=== PATIENT | female | born 1990 | race Two or more races ===

== ENCOUNTER 2016-07-15 14:04 | Emergency (ER) | payer MEDICAID ==
[~2016-07-15] VITALS: Ht 170.2 cm; Wt 95.3 kg
[~2016-07-15 14:04] MED LIST: CALC0.25 PO; CALC150C PO; DOCU100T7 PO; FERRTAB PO
[2016-07-15 15:28] VITALS: BP 138/88
== END 2016-07-16 00:04 | disposition left against medical advice (07) ==
LOC: ER 14:04 → EDUNIT# 14:04 → ER 07-16 00:03
DX: R07.89 Other chest pain (principal); Z53.21 Procedure and treatment not carried out due to patient leaving prior to being seen by health care provider
CPT/HCPCS: 93005

== ENCOUNTER 2016-11-17 14:35 | Inpatient (IN) | payer MEDICAID ==
[~2016-11-17] VITALS: Ht 170.2 cm; Wt 113.3 kg
[2016-11-17 16:40] LABS: Albumin 3.7 g/dL (3.4-5.0); Potassium 3.2 mmol/L (3.5-5.1)
[2016-11-17 16:43] LABS: BUN/Creatinine Ratio 11.1; Basophils # (auto) 0 uL; Basophils % (auto) 0.3 % (0.0-2.0); Bilirubin, Total 0.2 mg/dL (0.2-1.0); DEFINITIVE Y; Eosinophils # (auto) 0.1 uL; Eosinophils % (auto) 1.6 % (0.0-7.0); Hematocrit 27.2 % (36.0-46.0); Hemoglobin 8.8 g/dL (12.2-16.2); Lymphocytes # (auto) 1.3 uL; Lymphocytes % (auto) 19.1 % (10.0-50.0); Mean Corpuscular Hemoglobin 23.9 pg (28.0-32.0); Mean Corpuscular Hgb Conc. 32.2 g/dL (32.0-36.0); Mean Corpuscular Volume 74.1 fL (80.0-100.0); Mean Platelet Volume 8.4 fL (7.4-10.4); Monocytes # (auto) 0.4 uL; Monocytes % (auto) 5.6 % (0.0-12.0); Neutrophils # (auto) 4.9 uL; Neutrophils % (auto) 73.4 % (37.0-80.0); Platelet Count (auto) 353 10^3/uL (140-450); Red Cell Distribution Width 18.1 % (11.6-16.0); Total Protein 7.8 g/dL (6.4-8.2); White Blood Cell 6.7 10^3/uL (4.4-10.8)
[2016-11-17 16:56] LABS: Calcium 5.9 mg/dL (8.5-10.1)
[2016-11-17 20:31] LABS: INR 0.98 (0.9-1.15); Partial Thromboplastin Time 28.6 sec (22.64-33.71); Prothrombin Time 10.7 sec (9.37-12.3)
[2016-11-17 20:37] LABS: Urine Bilirubin Negative (Negative); Urine Blood Negative /uL (Negative); Urine Color Yellow (Yellow); Urine Glucose Normal (Normal); Urine Ketone Negative (Negative); Urine Mucus FEW (None Seen); Urine Nitrite Negative (Negative); Urine RBC 2 /hpf (0 - 4); Urine Squamous Epithelial Cell FEW /hpf (<5); Urine Urobilinogen Normal (Negative)
[2016-11-17] MEDS ORDERED: POTASSIUM CHL 20 Meq TABLET PO ONE (21:15)
[2016-11-17] MEDS ORDERED: CALCIUM GLUC 4.65 MEQ/10ML 4.65 MEQ in SODIUM CHL 0.9% 50 ML IV ONE (21:15)
[2016-11-17] MEDS ORDERED: SODIUM CHLORIDE 0.9% 1,000 ML IV ONE (22:15)
[2016-11-17] MEDS ORDERED: ACETAMINOPHEN 325 MG TAB PO PRN (22:30)
[2016-11-17] MEDS: CALCITRIOL 0.25 MCG CAP PO SCH (22:49)
[2016-11-17] MEDS: CIPROFLOXACIN HCL 500 MG TAB PO SCH (22:49)
[2016-11-17] MEDS: LEVETIRACETAM 500 MG TAB PO SCH (22:49)
[2016-11-18] MEDS ORDERED: ONDANSETRON HCL 4 MG/2 ML VIAL ONE (00:11)
[2016-11-18] MEDS ORDERED: ONDANSETRON HCL 4 MG/2 ML VIAL IV PRN (00:15)
[2016-11-18 04:26] LABS: Basophils # (auto) 0 uL; Basophils % (auto) 0.6 % (0.0-2.0); DEFINITIVE Y; Eosinophils # (auto) 0.1 uL; Hematocrit 24.6 % (36.0-46.0); Lymphocytes # (auto) 1.6 uL; Lymphocytes % (auto) 26.7 % (10.0-50.0); Mean Corpuscular Hemoglobin 23.9 pg (28.0-32.0); Mean Corpuscular Hgb Conc. 32.5 g/dL (32.0-36.0); Mean Corpuscular Volume 73.5 fL (80.0-100.0); Monocytes # (auto) 0.4 uL; Monocytes % (auto) 6.7 % (0.0-12.0); Neutrophils # (auto) 3.9 uL; Platelet Count (auto) 310 10^3/uL (140-450); Red Cell Distribution Width 18.1 % (11.6-16.0); White Blood Cell 6.1 10^3/uL (4.4-10.8)
[2016-11-18 04:41] LABS: Albumin 3.2 g/dL (3.4-5.0); BUN/Creatinine Ratio 12.9; Potassium 3.7 mmol/L (3.5-5.1)
[2016-11-18 04:42] LABS: Calcium 5.9 mg/dL (8.5-10.1)
[2016-11-18 04:44] LABS: Bilirubin, Total 0.3 mg/dL (0.2-1.0); Total Protein 6.9 g/dL (6.4-8.2)
[2016-11-18] MEDS ORDERED: LEVOTHYROXINE SODIUM 100 MCG TAB PO SCH (07:00)
[2016-11-18] MEDS: CALCITRIOL 0.25 MCG CAP PO SCH ×3 (07:56→22:02)
[2016-11-18 08:45] VITALS: BP 121/68
[2016-11-18] MEDS: CIPROFLOXACIN HCL 500 MG TAB PO SCH ×2 (09:46→22:02)
[2016-11-18] MEDS: LEVETIRACETAM 500 MG TAB PO SCH ×2 (09:56→22:02)
[2016-11-18] MEDS: CALCIUM CITRATE PO SCH ×2 (10:00→22:00)
[2016-11-18 12:22] VITALS: BP 123/63
[2016-11-18 12:45] VITALS: BP 123/63
[2016-11-18] MEDS ORDERED: LEV100T PO (14:54)
[2016-11-18 16:36] VITALS: BP 103/55
[2016-11-18 20:00] VITALS: BP 104/59
[2016-11-18 22:00] VITALS: BP 106/67
[2016-11-19 02:08] VITALS: BP 103/67
[2016-11-19 05:00] VITALS: BP 92/46
[2016-11-19] MEDS: CALCITRIOL 0.25 MCG CAP PO SCH (05:56)
[2016-11-19 06:53] LABS: Basophils # (auto) 0 uL; Basophils % (auto) 0.4 % (0.0-2.0); CONDITION Y; DEFINITIVE Y; Eosinophils # (auto) 0.1 uL; Eosinophils % (auto) 1.9 % (0.0-7.0); Hemoglobin 8.2 g/dL (12.2-16.2); Lymphocytes # (auto) 1.4 uL; Lymphocytes % (auto) 23.1 % (10.0-50.0); Mean Corpuscular Hemoglobin 23.7 pg (28.0-32.0); Mean Corpuscular Hgb Conc. 31.7 g/dL (32.0-36.0); Mean Corpuscular Volume 74.6 fL (80.0-100.0); Mean Platelet Volume 8.3 fL (7.4-10.4); Monocytes # (auto) 0.4 uL; Monocytes % (auto) 6.6 % (0.0-12.0); Neutrophils # (auto) 4.1 uL; Platelet Count (auto) 315 10^3/uL (140-450); Red Cell Distribution Width 17.6 % (11.6-16.0)
[2016-11-19 07:32] LABS: Albumin 3.2 g/dL (3.4-5.0); Potassium 3.6 mmol/L (3.5-5.1)
[2016-11-19 07:49] LABS: BUN/Creatinine Ratio 14.9; Bilirubin, Total 0.3 mg/dL (0.2-1.0); Total Protein 7.1 g/dL (6.4-8.2)
[2016-11-19 08:16] VITALS: BP 103/57
[2016-11-19] MEDS: LEVETIRACETAM 500 MG TAB PO SCH (09:41)
[2016-11-19] MEDS: CALCIUM CITRATE PO SCH (09:41)
[2016-11-19] MEDS: CIPROFLOXACIN HCL 500 MG TAB PO SCH (09:41)
[2016-11-19 12:30] VITALS: BP 105/60
[2016-11-20] MEDS ORDERED: LEVE500T22 PO (04:03)
== END 2016-11-19 13:19 | disposition home or self-care (01) | DRG 532 ==
LOC: ER 14:35 → TELE 14:37 → TELE-WESTW 11-18 09:09
PROVIDERS: ADMIT Family Medicine; ATTEND Internal Medicine
DX: N92.0 Excessive and frequent menstruation with regular cycle (principal); N39.0 Urinary tract infection, site not specified; R53.1 Weakness; E83.51 Hypocalcemia; E87.6 Hypokalemia; F41.9 Anxiety disorder, unspecified; E89.0 Postprocedural hypothyroidism; D50.9 Iron deficiency anemia, unspecified; D50.0 Iron deficiency anemia secondary to blood loss (chronic); G40.909 Epilepsy, unspecified, not intractable, without status epilepticus; Z79.899 Other long term (current) drug therapy; Z82.49 Family history of ischemic heart disease and other diseases of the circulatory system; Z83.3 Family history of diabetes mellitus; Z85.850 Personal history of malignant neoplasm of thyroid; Z82.3 Family history of stroke; Z88.5 Allergy status to narcotic agent; Z98.51 Tubal ligation status; Z90.89 Acquired absence of other organs; Z80.9 Family history of malignant neoplasm, unspecified; Z71.89 Other specified counseling
CPT/HCPCS: 36415; 71010; 80053; 81001; 81025; 83735; 83970; 84443; 85025; 85610; 85730; 87086; 93005; 94761; 96365; J2405

== ENCOUNTER 2016-11-19 16:05 | Inpatient (IN) | payer MEDICAID ==
[~2016-11-19] VITALS: Ht 170.2 cm; Wt 115.0 kg
[~2016-11-19 16:05] MED LIST changes: +LEV100T PO
[2016-11-19 17:25] LABS: Albumin 3.6 g/dL (3.4-5.0); Alkaline Phosphatase 88 U/L (45-117); Anion Gap 10 (5-15); Aspartate Aminotransferase 17 U/L (15-37); BUN/Creatinine Ratio 12.5; Bilirubin, Total 0.3 mg/dL (0.2-1.0); Blood Urea Nitrogen 11 mg/dL (7-18); Calcium 6.2 mg/dL (8.5-10.1); Carbon Dioxide 27 mmol/L (21-32); Chloride 102 mmol/L (98-107); GFR African American 102 mL/min; GFR Non-African American 85 mL/min; Glucose 98 mg/dL (74-106); Potassium 3.4 mmol/L (3.5-5.1); Sodium 139 mmol/L (136-145); Total Protein 7.7 g/dL (6.4-8.2)
[2016-11-19 17:28] LABS: Basophils # (auto) 0 uL; Basophils % (auto) 0.2 % (0.0-2.0); CONDITION AutoValidated; DEFINITIVE SEE PRINTOUT; Eosinophils # (auto) 0.1 uL; Eosinophils % (auto) 1.7 % (0.0-7.0); Hematocrit 27.9 % (36.0-46.0); Hemoglobin 9.1 g/dL (12.2-16.2); Lymphocytes # (auto) 1.5 uL; Lymphocytes % (auto) 20.6 % (10.0-50.0); Mean Corpuscular Hemoglobin 24.2 pg (28.0-32.0); Mean Corpuscular Hgb Conc. 32.8 g/dL (32.0-36.0); Mean Corpuscular Volume 73.8 fL (80.0-100.0); Mean Platelet Volume 8.4 fL (7.4-10.4); Monocytes # (auto) 0.4 uL; Monocytes % (auto) 5.7 % (0.0-12.0); Neutrophils # (auto) 5.3 uL; Neutrophils % (auto) 71.8 % (37.0-80.0); Platelet Count (auto) 334 10^3/uL (140-450); Red Cell Distribution Width 18.1 % (11.6-16.0); White Blood Cell 7.3 10^3/uL (4.4-10.8)
[2016-11-19 17:48] LABS: Platelet Estimate Adequate
[2016-11-19 17:49] LABS: Hypochromia Slight
[2016-11-19] MEDS ORDERED: SODIUM CHLORIDE 0.9% 1,000 ML IV ONE (18:47)
[2016-11-19] MEDS ORDERED: ONDANSETRON HCL 4 MG/2 ML VIAL IV ONE (19:00)
[2016-11-19] MEDS ORDERED: TEMAZEPAM 15 MG CAP PO PRN (21:45)
[2016-11-19] MEDS ORDERED: POTASSIUM CHL 20 Meq TABLET PO ONE (21:45)
[2016-11-19] MEDS ORDERED: CALCIUM GLUC 4.65 MEQ/10ML 4.65 MEQ in SODIUM CHL 0.9% 50 ML IV ONE ×2 (21:45→22:30)
[2016-11-19] MEDS ORDERED: HYDROcodone-ACET 5/325MG TAB PO PRN (21:45)
[2016-11-19] MEDS: CALCIUM CITRATE PO SCH (22:00)
[2016-11-19] MEDS: LEVETIRACETAM 500 MG TAB PO SCH (22:46)
[2016-11-19] MEDS: FAMOTIDINE 20 MG TAB PO SCH (22:47)
[2016-11-19] MEDS: SODIUM CHLORIDE 0.9% 1,000 ML IV SCH (23:38)
[2016-11-20] VITALS (9 sets, daily range): BP systolic 102–123; BP diastolic 61–77
[2016-11-20 00:37] LABS: Urine Bilirubin Negative (Negative); Urine Blood Negative /uL (Negative); Urine Color Yellow (Yellow); Urine Glucose Normal (Normal); Urine Ketone Negative (Negative); Urine Mucus FEW (None Seen); Urine Nitrite Negative (Negative); Urine RBC 3 /hpf (0 - 4); Urine Squamous Epithelial Cell FEW /hpf (<5); Urine Urobilinogen Normal (Negative)
[2016-11-20] MEDS ORDERED: CALCITRIOL 0.25 MCG CAP ONE (01:23)
[2016-11-20] MEDS ORDERED: ACETAMINOPHEN 325 MG TAB PO ONE (01:24)
[2016-11-20] MEDS: CALCITRIOL 0.25 MCG CAP PO SCH ×3 (01:33→21:38)
[2016-11-20] MEDS: ACETAMINOPHEN 325 MG TAB PO PRN ×2 (01:33→23:55)
[2016-11-20] MEDS ORDERED: LEVE500T22 PO (04:03)
[2016-11-20] MEDS ORDERED: LEVOTHYROXINE SODIUM 100 MCG TAB ONE (04:51)
[2016-11-20] MEDS: LEVOTHYROXINE SODIUM 100 MCG TAB PO SCH (06:39)
[2016-11-20] MEDS: CALCIUM CITRATE PO SCH ×2 (10:55→21:38)
[2016-11-20] MEDS: FAMOTIDINE 20 MG TAB PO SCH ×2 (10:55→21:35)
[2016-11-20] MEDS: LEVETIRACETAM 500 MG TAB PO SCH ×2 (10:55→21:34)
[2016-11-20] MEDS: ONDANSETRON HCL 4 MG/2 ML VIAL IV PRN (11:02)
[2016-11-20] MEDS ORDERED: LORazepam 2MG/ML-1ML VIAL IV PRN (14:00)
[2016-11-20] MEDS ORDERED: LORazepam 2MG/ML-1ML VIAL ONE (14:03)
[2016-11-20] MEDS: SODIUM CHLORIDE 0.9% 1,000 ML IV SCH (14:25)
[2016-11-20] MEDS: PROMETHAZINE HCL 25 MG/ML 1ML IV PRN ×3 (14:47→23:16)
[2016-11-20] MEDS ORDERED: ERGOCALCIFEROL 50,000 UNIT(1.25MG) CAP PO SCH (15:00)
[2016-11-20] MEDS ORDERED: PHENYTOIN IV DILANTIN 1,000 MG in SODIUM CHL 0.9% 250 ML IV ONE (15:00)
[2016-11-20] MEDS ORDERED: CALCIUM CARB 500 MG CHEW TAB PO ONE (15:15)
[2016-11-20] MEDS ORDERED: FAMOTIDINE 20 MG TAB PO ONE (15:15)
[2016-11-20 16:35] LABS: BUN/Creatinine Ratio 15.7; Calcium 6.5 mg/dL (8.5-10.1); Potassium 3.6 mmol/L (3.5-5.1)
[2016-11-20] MEDS: PHENYTOIN SODIUM 100 MG CAP PO SCH (21:32)
[2016-11-20] MEDS: CALCIUM CARB 500 MG CHEW TAB PO SCH (21:32)
[2016-11-21] VITALS (7 sets, daily range): BP systolic 104–116; BP diastolic 57–66
[2016-11-21] MEDS ORDERED: diphenhdrAMINE HCL 50 MG/1 ML VL IM ONE (01:00)
[2016-11-21] MEDS ORDERED: methylPREDNISolone SOD SUCC 125 MG/2 ML VL IM ONE (01:00)
[2016-11-21] MEDS: ONDANSETRON HCL 4 MG/2 ML VIAL IV PRN (01:25)
[2016-11-21] MEDS: SODIUM CHLORIDE 0.9% 1,000 ML IV SCH ×2 (07:05→21:33)
[2016-11-21] MEDS: LEVOTHYROXINE SODIUM 100 MCG TAB PO SCH (07:05)
[2016-11-21] MEDS: PROMETHAZINE HCL 25 MG/ML 1ML IV PRN ×3 (08:57→21:31)
[2016-11-21] MEDS: HYDROmorphone HCL 2 MG/ML VL IV PRN ×3 (08:57→22:07)
[2016-11-21] MEDS: CALCIUM CITRATE PO SCH (10:00)
[2016-11-21] MEDS: LEVETIRACETAM 500 MG TAB PO SCH ×2 (10:06→21:37)
[2016-11-21] MEDS: FAMOTIDINE 20 MG TAB PO SCH ×2 (10:07→21:37)
[2016-11-21] MEDS: CALCITRIOL 0.25 MCG CAP PO SCH ×2 (10:07→21:36)
[2016-11-21] MEDS: CALCIUM CARB 500 MG CHEW TAB PO SCH ×2 (10:07→21:36)
[2016-11-21] MEDS: CIPROFLOXACIN HCL 500 MG TAB PO SCH ×2 (12:16→21:36)
[2016-11-21] MEDS: PHENYTOIN SODIUM 100 MG CAP PO SCH (21:39)
[2016-11-22 06:00] VITALS: BP 109/71
[2016-11-22 06:04] LABS: Basophils # (auto) 0 uL; Basophils % (auto) 0.3 % (0.0-2.0); CONDITION AutoValidated; DEFINITIVE SEE PRINTOUT; Eosinophils # (auto) 0 uL; Eosinophils % (auto) 0.4 % (0.0-7.0); Hematocrit 26.2 % (36.0-46.0); Hemoglobin 8.5 g/dL (12.2-16.2); Lymphocytes # (auto) 1.5 uL; Lymphocytes % (auto) 16.4 % (10.0-50.0); Mean Corpuscular Hemoglobin 24.1 pg (28.0-32.0); Mean Corpuscular Hgb Conc. 32.3 g/dL (32.0-36.0); Mean Corpuscular Volume 74.5 fL (80.0-100.0); Mean Platelet Volume 8.1 fL (7.4-10.4); Monocytes # (auto) 0.6 uL; Monocytes % (auto) 6.1 % (0.0-12.0); Neutrophils # (auto) 7.2 uL; Neutrophils % (auto) 76.8 % (37.0-80.0); Platelet Count (auto) 328 10^3/uL (140-450); Red Cell Distribution Width 18.1 % (11.6-16.0); White Blood Cell 9.4 10^3/uL (4.4-10.8)
[2016-11-22 06:24] LABS: Albumin 3.1 g/dL (3.4-5.0); BUN/Creatinine Ratio 12.5; Calcium 6.7 mg/dL (8.5-10.1); Potassium 3.3 mmol/L (3.5-5.1)
[2016-11-22] MEDS: LEVOTHYROXINE SODIUM 100 MCG TAB PO SCH (06:37)
[2016-11-22 06:47] LABS: Bilirubin, Total 0.2 mg/dL (0.2-1.0)
[2016-11-22 09:00] VITALS: BP 95/53
[2016-11-22] MEDS ORDERED: POTASSIUM CHLORIDE 20 MEQ, LIDOCAINE 1% (LOCAL ANESTH.) 2 ML in SODIUM CHL 0.9% 100 ML IV ONE (10:00)
[2016-11-22] MEDS ORDERED: PANTOPRAZOLE 40 MG TAB PO ONE (10:30)
[2016-11-22] MEDS: DOCUSATE SOD 100 MG CAP PO PRN ×2 (10:46→21:30)
[2016-11-22] MEDS: CIPROFLOXACIN HCL 500 MG TAB PO SCH ×2 (10:46→21:29)
[2016-11-22] MEDS: LEVETIRACETAM 500 MG TAB PO SCH ×2 (10:46→21:30)
[2016-11-22] MEDS: CALCIUM CARB 500 MG CHEW TAB PO SCH ×2 (10:46→21:30)
[2016-11-22] MEDS: CALCITRIOL 0.25 MCG CAP PO SCH ×2 (10:46→21:30)
[2016-11-22 13:00] VITALS: BP 118/70
[2016-11-22] MEDS: HYDROmorphone HCL 2 MG/ML VL IV PRN ×2 (14:32→21:32)
[2016-11-22 17:00] VITALS: BP 124/76
[2016-11-22] MEDS: SODIUM CHLORIDE 0.9% 1,000 ML IV SCH (17:01)
[2016-11-22 20:00] VITALS: BP 116/71
[2016-11-22] MEDS: PHENYTOIN SODIUM 100 MG CAP PO SCH (21:29)
[2016-11-22] MEDS: ONDANSETRON HCL 4 MG/2 ML VIAL IV PRN (21:31)
[2016-11-22 22:00] VITALS: BP 116/71
[2016-11-23] VITALS (7 sets, daily range): BP systolic 91–117; BP diastolic 51–73
[2016-11-23] MEDS: LEVOTHYROXINE SODIUM 100 MCG TAB PO SCH (06:40)
[2016-11-23] MEDS: ONDANSETRON HCL 4 MG/2 ML VIAL IV PRN ×3 (06:46→20:18)
[2016-11-23] MEDS: HYDROmorphone HCL 2 MG/ML VL IV PRN ×3 (06:46→20:19)
[2016-11-23 07:01] LABS: BUN/Creatinine Ratio 14.3; Calcium 6.2 mg/dL (8.5-10.1); Potassium 3.7 mmol/L (3.5-5.1)
[2016-11-23 07:29] LABS: Basophils # (auto) 0 uL; Basophils % (auto) 0.2 % (0.0-2.0); DEFINITIVE SEE PRINTOUT; Eosinophils # (auto) 0.1 uL; Eosinophils % (auto) 1.5 % (0.0-7.0); Hematocrit 26.8 % (36.0-46.0); Hemoglobin 8.6 g/dL (12.2-16.2); Lymphocytes % (auto) 27.2 % (10.0-50.0); Mean Corpuscular Hemoglobin 23.6 pg (28.0-32.0); Mean Corpuscular Hgb Conc. 32.1 g/dL (32.0-36.0); Mean Corpuscular Volume 73.5 fL (80.0-100.0); Mean Platelet Volume 7.7 fL (7.4-10.4); Monocytes # (auto) 0.4 uL; Monocytes % (auto) 5.8 % (0.0-12.0); Neutrophils # (auto) 4.8 uL; Neutrophils % (auto) 65.3 % (37.0-80.0); Platelet Count (auto) 318 10^3/uL (140-450); Red Cell Distribution Width 17.9 % (11.6-16.0); White Blood Cell 7.4 10^3/uL (4.4-10.8)
[2016-11-23] MEDS: SODIUM CHLORIDE 0.9% 1,000 ML IV SCH (09:05)
[2016-11-23] MEDS: PANTOPRAZOLE 40 MG TAB PO SCH (10:00)
[2016-11-23] MEDS: CIPROFLOXACIN HCL 500 MG TAB PO SCH ×2 (10:00→22:41)
[2016-11-23] MEDS: LEVETIRACETAM 500 MG TAB PO SCH ×2 (10:00→22:41)
[2016-11-23] MEDS: CALCITRIOL 0.25 MCG CAP PO SCH ×2 (10:00→22:41)
[2016-11-23] MEDS: CALCIUM CARB 500 MG CHEW TAB PO SCH ×2 (10:00→22:41)
[2016-11-23] MEDS: PHENYTOIN SODIUM 100 MG CAP PO SCH (22:41)
[2016-11-23] MEDS: DOCUSATE SOD 100 MG CAP PO PRN (22:41)
[2016-11-24] MEDS: SODIUM CHLORIDE 0.9% 1,000 ML IV SCH (01:40)
[2016-11-24 05:21] VITALS: BP 107/69
[2016-11-24] MEDS: ONDANSETRON HCL 4 MG/2 ML VIAL IV PRN ×2 (05:36→06:51)
[2016-11-24] MEDS: HYDROmorphone HCL 2 MG/ML VL IV PRN (05:37)
[2016-11-24] MEDS: LEVOTHYROXINE SODIUM 100 MCG TAB PO SCH (06:50)
[2016-11-24 08:27] VITALS: BP 117/77
[2016-11-24] MEDS: CALCIUM CARB 500 MG CHEW TAB PO SCH (10:13)
[2016-11-24] MEDS: LEVETIRACETAM 500 MG TAB PO SCH (10:13)
[2016-11-24] MEDS: CALCITRIOL 0.25 MCG CAP PO SCH (10:13)
[2016-11-24] MEDS: CIPROFLOXACIN HCL 500 MG TAB PO SCH (10:13)
[2016-11-24] MEDS: PANTOPRAZOLE 40 MG TAB PO SCH (10:13)
[2016-11-24 12:50] VITALS: BP 122/76
== END 2016-11-24 16:15 | disposition home or self-care (01) | DRG 53 ==
LOC: ER 16:05 → EDBD 16:05 → WEST WING 16:06 → ER 11-20 00:10 → TELE-WESTW 11-20 20:27
PROVIDERS: ADMIT Internal Medicine; ATTEND Internal Medicine
DX: G40.409 Other generalized epilepsy and epileptic syndromes, not intractable, without status epilepticus (principal); E87.8 Other disorders of electrolyte and fluid balance, not elsewhere classified; N39.0 Urinary tract infection, site not specified; E83.51 Hypocalcemia; E03.9 Hypothyroidism, unspecified; D50.0 Iron deficiency anemia secondary to blood loss (chronic); E20.9 Hypoparathyroidism, unspecified; E66.9 Obesity, unspecified; Z68.39 Body mass index [BMI] 39.0-39.9, adult; K59.00 Constipation, unspecified; N92.0 Excessive and frequent menstruation with regular cycle; S16.1XXA Strain of muscle, fascia and tendon at neck level, initial encounter; Z82.3 Family history of stroke; Z82.49 Family history of ischemic heart disease and other diseases of the circulatory system; Z83.3 Family history of diabetes mellitus; F41.9 Anxiety disorder, unspecified; Z98.51 Tubal ligation status; Z90.89 Acquired absence of other organs; Z85.9 Personal history of malignant neoplasm, unspecified; Z71.89 Other specified counseling; Z80.41 Family history of malignant neoplasm of ovary; Z83.6 Family history of other diseases of the respiratory system; Z88.5 Allergy status to narcotic agent
CPT/HCPCS: 36415; 70450; 72125; 80048; 80053; 81001; 82728; 82962; 84484; 85025; 87081; 93005; 94761; 96365; 96366; 96375; J2001; J2405

== ENCOUNTER 2017-01-08 21:02 | Emergency (ER) | payer MEDICAID ==
[~2017-01-08] VITALS: Ht 170.2 cm; Wt 108.9 kg
[~2017-01-08 21:02] MED LIST changes: +LEVE500T22 PO
[2017-01-08 21:32] VITALS: BP 120/77
[2017-01-08] MEDS ORDERED: KETOROLAC TROMETH 60MG/2ML VIAL IM ONE (23:30)
== END 2017-01-09 01:20 | disposition home or self-care (01) ==
LOC: ER 21:16
DX: Z04.1 Encounter for examination and observation following transport accident (principal); M54.9 Dorsalgia, unspecified; V49.50XA Passenger injured in collision with unspecified motor vehicles in traffic accident, initial encounter; Y93.89 Activity, other specified; Y92.488 Other paved roadways as the place of occurrence of the external cause; Y99.8 Other external cause status; E07.9 Disorder of thyroid, unspecified; Z98.51 Tubal ligation status; Z88.6 Allergy status to analgesic agent
CPT/HCPCS: 72125; 72131; 96372; 99284; J1885

== ENCOUNTER 2017-03-21 11:54 | Inpatient (IN) | payer MEDICAID ==
[~2017-03-21] VITALS: Ht 170.2 cm; Wt 123.4 kg
[~2017-03-21 11:54] MED LIST changes: -LEV100T PO; +LEVO200I5 PO
[2017-03-21 12:36] LABS: Basophils # (auto) 0.1 uL; Basophils % (auto) 1.3 % (0.0-2.0); Eosinophils # (auto) 0.2 uL; Eosinophils % (auto) 2.5 % (0.0-7.0); Hematocrit 33.2 % (36.0-46.0); Hemoglobin 10.4 g/dL (12.2-16.2); Lymphocytes # (auto) 1.9 uL; Lymphocytes % (auto) 23.1 % (10.0-50.0); Mean Corpuscular Hemoglobin 24.3 pg (28.0-32.0); Mean Corpuscular Hgb Conc. 31.4 g/dL (32.0-36.0); Mean Corpuscular Volume 77.3 fL (80.0-100.0); Mean Platelet Volume 8.1 fL (6.9-10.8); Monocytes # (auto) 0.4 uL; Monocytes % (auto) 4.7 % (0.0-12.0); Neutrophils # (auto) 5.6 uL; Neutrophils % (auto) 68.4 % (37.0-80.0); Nucleated Red Blood Cells % 0.1 %; Platelet Count (auto) 296 10^3/uL (140-450); White Blood Cell 8.2 10^3/uL (4.4-10.8)
[2017-03-21 12:53] LABS: Anion Gap 11 (5-15); Aspartate Aminotransferase 27 U/L (15-37); BUN/Creatinine Ratio 8.8; Blood Urea Nitrogen 9 mg/dL (7-18); Calcium 7.5 mg/dL (8.5-10.1); Carbon Dioxide 26 mmol/L (21-32); Chloride 102 mmol/L (98-107); GFR African American 86 mL/min; GFR Non-African American 71 mL/min; Glucose 87 mg/dL (74-106); Potassium 3.8 mmol/L (3.5-5.1); Sodium 139 mmol/L (136-145)
[2017-03-21 12:58] LABS: Alkaline Phosphatase 77 U/L (45-117); Bilirubin, Total 0.3 mg/dL (0.2-1.0); Total Protein 8.2 g/dL (6.4-8.2)
[2017-03-21 13:23] LABS: Anisocytosis Slight; Hypochromia Slight; Microcytosis Slight; Platelet Estimate Adequate
[2017-03-21 13:24] LABS: Ovalocytes FEW
[2017-03-21] MEDS ORDERED: SODIUM CHLORIDE 0.9% 1,000 ML IV ONE (14:30)
[2017-03-21] MEDS ORDERED: ASPirin 81 mg TAB PO ONE (14:30)
[2017-03-21] MEDS ORDERED: FERROUS SULFATE 300 MG/5 ML ORAL LIQ GT ONE (14:45)
[2017-03-21 15:34] LABS: Urine RBC None Seen /hpf (0 - 4)
[2017-03-21 16:12] LABS: Urine Bilirubin Negative (Negative); Urine Blood Negative /uL (Negative); Urine Color Yellow (Yellow); Urine Glucose Normal (Normal); Urine Ketone Negative (Negative); Urine Nitrite Negative (Negative); Urine Squamous Epithelial Cell FEW /hpf (<5); Urine Urobilinogen Normal (Negative)
[2017-03-21] MEDS ORDERED: LORazepam 2MG/ML-1ML VIAL ONE (16:12)
[2017-03-21] MEDS ORDERED: LEVETIRACETAM INJ 1,000 MG in SODIUM CHL 0.9% 100 ML IV ONE (16:30)
[2017-03-21] MEDS ORDERED: LORazepam 2MG/ML-1ML VIAL IM ONE (16:30)
[2017-03-21] MEDS ORDERED: LORazepam 2MG/ML-1ML VIAL IV PRN (17:00)
[2017-03-21] MEDS ORDERED: MORPHINE SULF INJ 2 MG/ML SYRINGE 1ML IV PRN ×3 (17:00)
[2017-03-21] MEDS ORDERED: NITROGLYCERIN 0.4 MG SL TAB SL PRN (17:00)
[2017-03-21] MEDS ORDERED: LACTULOSE 20Gm/30ML SOLN PO PRN (17:00)
[2017-03-21] MEDS ORDERED: TEMAZEPAM 15 MG CAP PO PRN (17:00)
[2017-03-21] MEDS: SODIUM CHLORIDE 0.9% 1,000 ML IV SCH (17:36)
[2017-03-21 20:30] VITALS: BP 107/59
[2017-03-21] MEDS: NITROFURANTOIN (MONO) 100 mg CAP PO SCH (21:12)
[2017-03-21] MEDS: CALCITRIOL 0.25 MCG CAP PO SCH (21:13)
[2017-03-21] MEDS: LEVETIRACETAM 500 MG TAB PO SCH (21:13)
[2017-03-21] MEDS: FERROUS SULFATE 325 MG TAB PO SCH (21:13)
[2017-03-21] MEDS ORDERED: FERROUS SULFATE PO SCH (22:00)
[2017-03-21] MEDS ORDERED: CALCIUM CITRATE PO SCH (22:00)
[2017-03-21 22:07] VITALS: BP 107/59
[2017-03-22 05:21] VITALS: BP 122/82
[2017-03-22] MEDS: LEVOTHYROXINE SODIUM 100 MCG TAB PO SCH (06:08)
[2017-03-22] MEDS: CALCITRIOL 0.25 MCG CAP PO SCH ×3 (06:08→21:56)
[2017-03-22] MEDS: SODIUM CHLORIDE 0.9% 1,000 ML IV SCH (06:09)
[2017-03-22 07:00] VITALS: BP 129/67
[2017-03-22 08:00] VITALS: BP 129/67
[2017-03-22 09:23] LABS: Cholesterol 221 mg/dL (< 200); HDL Cholesterol 51 mg/dL (40-59); LDL Cholesterol 96 mg/dL (< 100); Triglycerides 362 mg/dL (< 150)
[2017-03-22] MEDS ORDERED: PATIENTS OWN MEDICATION (Levothyroxine Sodium 300 MCG) PO SCH (10:00)
[2017-03-22] MEDS ORDERED: DOCUSATE SODIUM 100 MG PO SCH (10:00)
[2017-03-22] MEDS: ENOXAPARIN SOD 40 MG/0.4 ML SYRINGE SC SCH (10:43)
[2017-03-22] MEDS: NITROFURANTOIN (MONO) 100 mg CAP PO SCH ×2 (10:44→21:56)
[2017-03-22] MEDS: FERROUS SULFATE 325 MG TAB PO SCH ×2 (10:44→21:56)
[2017-03-22] MEDS: PANTOPRAZOLE 40 MG TAB PO SCH (10:44)
[2017-03-22] MEDS: LEVETIRACETAM 500 MG TAB PO SCH ×2 (10:44→21:56)
[2017-03-22] MEDS: DOCUSATE SOD 100 MG CAP PO SCH (10:44)
[2017-03-22] MEDS: LORazepam 0.5 MG TAB PO PRN (10:47)
[2017-03-22 13:00] VITALS: BP 112/74
[2017-03-22] MEDS: ACETAMINOPHEN 500 MG TAB PO PRN (13:55)
[2017-03-22] MEDS: CIPROFLOXACIN HCL 500 MG TAB PO SCH ×2 (15:44→21:56)
[2017-03-22 17:44] VITALS: BP 113/65
[2017-03-22 22:55] VITALS: BP 123/83
[2017-03-23] MEDS: ACETAMINOPHEN 500 MG TAB PO PRN (04:24)
[2017-03-23 05:25] VITALS: BP 129/78
[2017-03-23 05:45] LABS: Basophils # (auto) 0 uL; Eosinophils # (auto) 0.2 uL; Monocytes # (auto) 0.3 uL; White Blood Cell 5.7 10^3/uL (4.4-10.8)
[2017-03-23 05:49] LABS: Basophils % (auto) 0.7 % (0.0-2.0); Eosinophils % (auto) 3.3 % (0.0-7.0); Hematocrit 27.9 % (36.0-46.0); Lymphocytes # (auto) 1.5 uL; Lymphocytes % (auto) 25.5 % (10.0-50.0); Mean Corpuscular Hemoglobin 24.9 pg (28.0-32.0); Mean Corpuscular Hgb Conc. 32.2 g/dL (32.0-36.0); Mean Corpuscular Volume 77.1 fL (80.0-100.0); Mean Platelet Volume 8.1 fL (6.9-10.8); Monocytes % (auto) 5.4 % (0.0-12.0); Neutrophils # (auto) 3.7 uL; Neutrophils % (auto) 65.1 % (37.0-80.0); Platelet Count (auto) 250 10^3/uL (140-450)
[2017-03-23] MEDS: LEVOTHYROXINE SODIUM 100 MCG TAB PO SCH (05:58)
[2017-03-23] MEDS: CALCITRIOL 0.25 MCG CAP PO SCH ×3 (05:58→23:32)
[2017-03-23 06:25] LABS: Albumin 3.5 g/dL (3.4-5.0); BUN/Creatinine Ratio 8.3; Bilirubin, Total 0.3 mg/dL (0.2-1.0); Potassium 3.4 mmol/L (3.5-5.1); Total Protein 7.3 g/dL (6.4-8.2)
[2017-03-23 06:40] LABS: Anisocytosis Slight; Hypochromia Slight; Microcytosis Slight; Platelet Estimate Adequate
[2017-03-23 08:00] VITALS: BP 102/64
[2017-03-23] MEDS: PROMETHAZINE HCL 25 MG/ML 1ML IV PRN ×2 (08:44→16:30)
[2017-03-23 09:00] VITALS: BP 102/64
[2017-03-23 13:00] VITALS: BP 106/67
[2017-03-23] MEDS ORDERED: POTASSIUM CHLORIDE 40 MEQ, LIDOCAINE 1% (LOCAL ANESTH.) 4 ML in SODIUM CHL 0.9% 250 ML IV ONE (13:15)
[2017-03-23] MEDS ORDERED: PANTOPRAZOLE 40 MG TAB PO ONE (13:15)
[2017-03-23] MEDS: FERROUS SULFATE 325 MG TAB PO SCH ×2 (14:21→23:32)
[2017-03-23] MEDS: PANTOPRAZOLE 40 MG TAB PO SCH (14:21)
[2017-03-23] MEDS: LEVETIRACETAM 500 MG TAB PO SCH ×2 (14:21→23:32)
[2017-03-23] MEDS: DOCUSATE SOD 100 MG CAP PO SCH (14:22)
[2017-03-23] MEDS: NITROFURANTOIN (MONO) 100 mg CAP PO SCH ×2 (14:22→23:32)
[2017-03-23] MEDS: ENOXAPARIN SOD 40 MG/0.4 ML SYRINGE SC SCH (14:22)
[2017-03-23] MEDS: CIPROFLOXACIN HCL 500 MG TAB PO SCH ×2 (14:23→23:32)
[2017-03-23 17:00] VITALS: BP 122/67
[2017-03-23 22:00] VITALS: BP 100/61
[2017-03-23] MEDS: LORazepam 0.5 MG TAB PO PRN (23:32)
[2017-03-24 05:00] VITALS: BP 81/45
[2017-03-24] MEDS: LEVOTHYROXINE SODIUM 100 MCG TAB PO SCH (05:48)
[2017-03-24] MEDS: CALCITRIOL 0.25 MCG CAP PO SCH ×2 (05:50→14:00)
[2017-03-24 06:05] LABS: Basophils # (auto) 0 uL; Eosinophils # (auto) 0.2 uL; Lymphocytes # (auto) 1.6 uL; Mean Platelet Volume 7.9 fL (6.9-10.8); Monocytes # (auto) 0.3 uL; Neutrophils % (auto) 63.3 % (37.0-80.0)
[2017-03-24 06:08] LABS: Basophils % (auto) 0.6 % (0.0-2.0); Eosinophils % (auto) 3.4 % (0.0-7.0); Hematocrit 28.1 % (36.0-46.0); Hemoglobin 8.9 g/dL (12.2-16.2); Mean Corpuscular Hemoglobin 24.5 pg (28.0-32.0); Mean Corpuscular Hgb Conc. 31.8 g/dL (32.0-36.0); Mean Corpuscular Volume 77.1 fL (80.0-100.0); Monocytes % (auto) 4.7 % (0.0-12.0); Neutrophils # (auto) 3.6 uL; Nucleated Red Blood Cells % 0.2 %; Platelet Count (auto) 241 10^3/uL (140-450); White Blood Cell 5.7 10^3/uL (4.4-10.8)
[2017-03-24 06:23] LABS: Albumin 3.4 g/dL (3.4-5.0); BUN/Creatinine Ratio 8.3; Bilirubin, Total 0.2 mg/dL (0.2-1.0); Calcium 6.7 mg/dL (8.5-10.1); Potassium 3.5 mmol/L (3.5-5.1); Total Protein 7.3 g/dL (6.4-8.2)
[2017-03-24 09:00] VITALS: BP 116/68
[2017-03-24] MEDS ORDERED: PANTOPRAZOLE 40 MG TAB PO SCH (10:00)
[2017-03-24] MEDS: FERROUS SULFATE 325 MG TAB PO SCH (10:24)
[2017-03-24] MEDS: PANTOPRAZOLE 40 MG TAB PO SCH (10:25)
[2017-03-24] MEDS: NITROFURANTOIN (MONO) 100 mg CAP PO SCH (10:25)
[2017-03-24] MEDS: LEVETIRACETAM 500 MG TAB PO SCH (10:25)
[2017-03-24] MEDS: CIPROFLOXACIN HCL 500 MG TAB PO SCH (10:25)
[2017-03-24] MEDS: ENOXAPARIN SOD 40 MG/0.4 ML SYRINGE SC SCH (10:25)
[2017-03-24] MEDS: DOCUSATE SOD 100 MG CAP PO SCH (10:25)
[2017-03-24 13:00] VITALS: BP 117/62
[2017-03-24 15:12] LABS: Platelet Estimate Adequate
[2017-03-24 15:14] LABS: Anisocytosis Slight; Hypochromia Slight; Microcytosis Slight; Ovalocytes FEW; Stomatocytes Few
[2017-03-24 16:06] VITALS: BP 116/68
== END 2017-03-24 17:30 | disposition home or self-care (01) | DRG 53 ==
LOC: ER 11:54 → TELE 11:55 → ER 16:13 → TELE 19:30 → TELE-WESTW 19:34
PROVIDERS: ADMIT Internal Medicine; ATTEND Internal Medicine
DX: G40.209 Localization-related (focal) (partial) symptomatic epilepsy and epileptic syndromes with complex partial seizures, not intractable, without status epilepticus (principal); Z68.41 Body mass index [BMI] 40.0-44.9, adult; N39.0 Urinary tract infection, site not specified; E83.52 Hypercalcemia; E89.0 Postprocedural hypothyroidism; F41.9 Anxiety disorder, unspecified; E66.9 Obesity, unspecified; D64.9 Anemia, unspecified; K29.70 Gastritis, unspecified, without bleeding; Z98.51 Tubal ligation status; Z88.5 Allergy status to narcotic agent; Z79.899 Other long term (current) drug therapy; Z85.850 Personal history of malignant neoplasm of thyroid; Z87.730 Personal history of (corrected) cleft lip and palate; Z80.41 Family history of malignant neoplasm of ovary; Z82.3 Family history of stroke; Z82.49 Family history of ischemic heart disease and other diseases of the circulatory system; Z83.3 Family history of diabetes mellitus
CPT/HCPCS: 36415; 70450; 71010; 80053; 80061; 80307; 81001; 82962; 84484; 85025; 85652; 87081; 87086; 93005; 96361; 96365; 96372; J2001

== ENCOUNTER 2017-09-20 12:17 | Emergency (ER) | payer MEDICAID ==
[~2017-09-20] VITALS: Ht 172.7 cm; Wt 117.9 kg
[2017-09-20 13:15] LABS: Urine Bacteria FEW /hpf (None Seen); Urine Blood Negative /uL (Negative); Urine Mucus FEW (None Seen); Urine Specific Gravity 1.025 (1.001-1.035); Urine WBC 21 /hpf (0 - 5)
[2017-09-20 13:48] LABS: Basophils # (auto) 0 uL; Eosinophils # (auto) 0.1 uL; Hemoglobin 10.1 g/dL (12.2-16.2); Red Cell Distribution Width 16.7 % (11.8-14.3)
[2017-09-20 13:51] LABS: Basophils % (auto) 0.3 % (0.0-2.0); Eosinophils % (auto) 1.6 % (0.0-7.0); Hematocrit 31.2 % (36.0-46.0); Lymphocytes # (auto) 1.4 uL; Mean Corpuscular Hemoglobin 24.5 pg (28.0-32.0); Mean Corpuscular Hgb Conc. 32.4 g/dL (32.0-36.0); Mean Corpuscular Volume 75.5 fL (80.0-100.0); Monocytes # (auto) 0.5 uL; Monocytes % (auto) 6.5 % (0.0-12.0); Neutrophils # (auto) 5.2 uL; Neutrophils % (auto) 72.6 % (37.0-80.0); Nucleated Red Blood Cells % 0.2 %; Platelet Count (auto) 321 10^3/uL (140-450); Red Blood Cells 4.14 10^6/uL (4.0-5.20); White Blood Cell 7.2 10^3/uL (4.4-10.8)
[2017-09-20 14:17] LABS: Albumin 3.5 g/dL (3.4-5.0); Bilirubin, Total 0.2 mg/dL (0.2-1.0); Calcium 6.6 mg/dL (8.5-10.1); Potassium 3.6 mmol/L (3.5-5.1); Total Protein 7.9 g/dL (6.4-8.2)
[2017-09-20] MEDS ORDERED: CALCIUM GLUC 4.65meq/50ml D5AE 50 ML IV ONE (14:30)
[2017-09-20 16:30] VITALS: BP 111/64
[2017-09-20] MEDS ORDERED: NITROFURANTOIN (MONO) 100 mg CAP PO ONE (16:45)
== END 2017-09-20 17:31 | disposition home or self-care (01) ==
LOC: ER 12:17
DX: E83.51 Hypocalcemia (principal); N39.0 Urinary tract infection, site not specified; E07.89 Other specified disorders of thyroid; Z90.89 Acquired absence of other organs; Z98.51 Tubal ligation status; Z88.6 Allergy status to analgesic agent; Z79.899 Other long term (current) drug therapy
CPT/HCPCS: 36415; 80053; 81001; 81025; 84443; 85025; 96365; 99284; J0610

== ENCOUNTER 2017-09-29 13:10 | Inpatient (IN) | payer MEDICAID, OTHER ==
[~2017-09-29] VITALS: Ht 172.7 cm; Wt 115.5 kg
[2017-09-29 15:29] LABS: Basophils # (auto) 0 uL; Basophils % (auto) 0.2 % (0.0-2.0); Eosinophils # (auto) 0.1 uL; Hemoglobin 10.7 g/dL (12.2-16.2); Lymphocytes # (auto) 1.1 uL; Lymphocytes % (auto) 9.8 % (10.0-50.0); Mean Corpuscular Hgb Conc. 31.8 g/dL (32.0-36.0)
[2017-09-29 15:33] LABS: Eosinophils % (auto) 0.8 % (0.0-7.0); Hematocrit 33.6 % (36.0-46.0); Mean Corpuscular Hemoglobin 24.1 pg (28.0-32.0); Mean Corpuscular Volume 75.7 fL (80.0-100.0); Monocytes # (auto) 0.5 uL; Monocytes % (auto) 4.6 % (0.0-12.0); Neutrophils # (auto) 9.1 uL; Neutrophils % (auto) 84.6 % (37.0-80.0); Nucleated Red Blood Cells % 0.1 %; Platelet Count (auto) 375 10^3/uL (140-450); Red Blood Cells 4.44 10^6/uL (4.0-5.20); Red Cell Distribution Width 16.8 % (11.8-14.3); White Blood Cell 10.8 10^3/uL (4.4-10.8)
[2017-09-29 15:37] LABS: Potassium 3.9 mmol/L (3.5-5.1)
[2017-09-29 15:41] LABS: Albumin 3.7 g/dL (3.4-5.0); BUN/Creatinine Ratio 12.8; Calcium 7.8 mg/dL (8.5-10.1)
[2017-09-29 15:43] LABS: Bilirubin, Total 0.3 mg/dL (0.2-1.0); Total Protein 7.9 g/dL (6.4-8.2)
[2017-09-29 16:36] LABS: Urine Bacteria FEW /hpf (None Seen); Urine Blood Negative /uL (Negative); Urine Mucus FEW (None Seen); Urine Specific Gravity 1.023 (1.001-1.035); Urine WBC 2 /hpf (0 - 5)
[2017-09-29 17:45] LABS: Alcohol, Urine < 3.0 mg/dL (0-5); Amphetamine Screen, Urine NEGATIVE (NEGATIVE); Barbiturate Scree,Urine NEGATIVE (NEGATIVE); Benzodiazephine Screen, Urine NEGATIVE (NEGATIVE); Cannabinoid Screen, Urine NEGATIVE (NEGATIVE); Cocaine Screen, Urine NEGATIVE (NEGATIVE); Opiate Scree,Urine NEGATIVE (NEGATIVE); Phencyclidine Screen, Urine NEGATIVE (NEGATIVE)
[2017-09-29] MEDS ORDERED: ONDANSETRON HCL 4 MG/2 ML VIAL ONE (18:12)
[2017-09-29] MEDS ORDERED: ONDANSETRON HCL 4 MG/2 ML VIAL IV ONE (18:15)
[2017-09-29] MEDS ORDERED: ACETAMINOPHEN 325 MG TAB PO ONE (20:00)
[2017-09-29] MEDS ORDERED: traMADol HCL 50 MG TAB PO PRN (22:30)
[2017-09-29] MEDS ORDERED: MORPHINE SULFATE 8mg/ml INJ SDV IV PRN (22:30)
[2017-09-29] MEDS ORDERED: LORazepam 2MG/ML-1ML VIAL IV PRN (22:30)
[2017-09-29] MEDS ORDERED: ONDANSETRON HCL 4 MG/2 ML VIAL IV PRN (22:30)
[2017-09-30] MEDS ORDERED: LEVETIRACETAM 500 MG TAB PO ONE
[2017-09-30 00:46] VITALS: BP 114/61
[2017-09-30] MEDS: ACETAMINOPHEN 500 MG TAB PO PRN (04:21)
[2017-09-30 05:00] VITALS: BP 102/64
[2017-09-30] MEDS: LEVOTHYROXINE SODIUM 100 MCG TAB PO SCH (06:26)
[2017-09-30 07:01] LABS: BUN/Creatinine Ratio 14.3; Basophils # (auto) 0 uL; Calcium 8.2 mg/dL (8.5-10.1); Lymphocytes # (auto) 1.4 uL; Monocytes # (auto) 0.5 uL; Neutrophils # (auto) 4.6 uL; Nucleated Red Blood Cells % 0.1 %; Potassium 3.7 mmol/L (3.5-5.1); White Blood Cell 6.6 10^3/uL (4.4-10.8)
[2017-09-30 07:08] LABS: Basophils % (auto) 0.3 % (0.0-2.0); Eosinophils # (auto) 0.2 uL; Eosinophils % (auto) 2.5 % (0.0-7.0); Hemoglobin 9.9 g/dL (12.2-16.2); Lymphocytes % (auto) 20.6 % (10.0-50.0); Mean Corpuscular Hemoglobin 24.2 pg (28.0-32.0); Mean Corpuscular Hgb Conc. 31.8 g/dL (32.0-36.0); Mean Corpuscular Volume 75.9 fL (80.0-100.0); Neutrophils % (auto) 69.6 % (37.0-80.0); Platelet Count (auto) 319 10^3/uL (140-450); Red Blood Cells 4.08 10^6/uL (4.0-5.20); Red Cell Distribution Width 16.9 % (11.8-14.3)
[2017-09-30] MEDS ORDERED: HYDROcodone-ACET 5/325MG TAB PO PRN (08:15)
[2017-09-30 09:00] VITALS: BP 98/40
[2017-09-30] MEDS ORDERED: LEVETIRACETAM 500 MG TAB PO SCH (10:00)
[2017-09-30] MEDS: LEVETIRACETAM 500 MG TAB PO SCH ×2 (10:22→22:26)
[2017-09-30] MEDS: SERTRALINE HCL 50 MG TAB PO SCH (10:23)
[2017-09-30 13:00] VITALS: BP 100/72
[2017-09-30 17:00] VITALS: BP 173/65
[2017-09-30 22:00] VITALS: BP 111/69
[2017-10-01 05:00] VITALS: BP 117/66
[2017-10-01 06:31] LABS: Basophils # (auto) 0 uL; Basophils % (auto) 0.4 % (0.0-2.0); Lymphocytes # (auto) 1.5 uL; Monocytes # (auto) 0.5 uL; Nucleated Red Blood Cells % 0.1 %; White Blood Cell 7.2 10^3/uL (4.4-10.8)
[2017-10-01 06:34] LABS: Eosinophils # (auto) 0.2 uL; Eosinophils % (auto) 2.5 % (0.0-7.0); Hemoglobin 9.9 g/dL (12.2-16.2); Lymphocytes % (auto) 21.3 % (10.0-50.0); Mean Corpuscular Hemoglobin 24.1 pg (28.0-32.0); Mean Corpuscular Volume 75.4 fL (80.0-100.0); Monocytes % (auto) 6.4 % (0.0-12.0); Neutrophils % (auto) 69.4 % (37.0-80.0); Platelet Count (auto) 312 10^3/uL (140-450); Red Blood Cells 4.11 10^6/uL (4.0-5.20); Red Cell Distribution Width 16.7 % (11.8-14.3)
[2017-10-01] MEDS: LEVOTHYROXINE SODIUM 100 MCG TAB PO SCH (06:42)
[2017-10-01 06:55] LABS: Albumin 3.2 g/dL (3.4-5.0); BUN/Creatinine Ratio 12.2; Calcium 7.8 mg/dL (8.5-10.1); Potassium 3.9 mmol/L (3.5-5.1)
[2017-10-01 06:58] LABS: Bilirubin, Total 0.3 mg/dL (0.2-1.0)
[2017-10-01] MEDS: ACETAMINOPHEN 500 MG TAB PO PRN (08:15)
[2017-10-01 09:00] VITALS: BP 104/53
[2017-10-01] MEDS: SERTRALINE HCL 50 MG TAB PO SCH (10:00)
[2017-10-01] MEDS: LEVETIRACETAM 500 MG TAB PO SCH (10:00)
== END 2017-10-01 13:30 | disposition home or self-care (01) | DRG 53 ==
LOC: ER 13:10 → EDUNIT# 13:10 → EDBD 13:10 → OVERFLOW 13:11 → EAST 22:45
PROVIDERS: ADMIT Nurse Practitioner Family; ATTEND Internal Medicine
DX: G40.909 Epilepsy, unspecified, not intractable, without status epilepticus (principal); E44.1 Mild protein-calorie malnutrition; E88.09 Other disorders of plasma-protein metabolism, not elsewhere classified; S13.4XXA Sprain of ligaments of cervical spine, initial encounter; D64.9 Anemia, unspecified; E03.9 Hypothyroidism, unspecified; E66.9 Obesity, unspecified; F41.9 Anxiety disorder, unspecified; G47.00 Insomnia, unspecified; Z91.14 Patient's other noncompliance with medication regimen; Z88.5 Allergy status to narcotic agent; Z88.8 Allergy status to other drugs, medicaments and biological substances; Z79.899 Other long term (current) drug therapy; Z85.850 Personal history of malignant neoplasm of thyroid; Z83.3 Family history of diabetes mellitus; Z80.41 Family history of malignant neoplasm of ovary; Z82.3 Family history of stroke; Z82.49 Family history of ischemic heart disease and other diseases of the circulatory system; Z68.38 Body mass index [BMI] 38.0-38.9, adult; Y93.89 Activity, other specified; Y99.8 Other external cause status; Y92.410 Unspecified street and highway as the place of occurrence of the external cause; V43.52XA Car driver injured in collision with other type car in traffic accident, initial encounter
CPT/HCPCS: 36415; 70450; 71046; 72125; 80048; 80053; 80307; 81001; 81025; 82542; 84443; 84702; 85025; 94761; 96374; J2270; J2405

== ENCOUNTER 2017-10-15 21:36 | Emergency (ER) | payer MEDICAID ==
[~2017-10-15] VITALS: Ht 170.2 cm; Wt 113.4 kg
[2017-10-15 22:59] LABS: Basophils # (auto) 0 uL; Eosinophils # (auto) 0.1 uL; Eosinophils % (auto) 0.9 % (0.0-7.0); Hemoglobin 10.6 g/dL (12.2-16.2); Lymphocytes # (auto) 1.6 uL; Monocytes # (auto) 0.8 uL
[2017-10-15 23:04] LABS: Basophils % (auto) 0.1 % (0.0-2.0); Hematocrit 33.1 % (36.0-46.0); Lymphocytes % (auto) 10.1 % (10.0-50.0); Mean Corpuscular Hemoglobin 23.9 pg (28.0-32.0); Mean Corpuscular Volume 74.6 fL (80.0-100.0); Monocytes % (auto) 5.3 % (0.0-12.0); Neutrophils # (auto) 13.1 uL; Neutrophils % (auto) 83.6 % (37.0-80.0); Platelet Count (auto) 309 10^3/uL (140-450); Red Blood Cells 4.43 10^6/uL (4.0-5.20); Red Cell Distribution Width 16.7 % (11.8-14.3); White Blood Cell 15.7 10^3/uL (4.4-10.8)
[2017-10-15 23:14] LABS: Alanine Aminotransferase 20 U/L (13-56); Albumin 3.7 g/dL (3.4-5.0); Anion Gap 11 (5-15); Aspartate Aminotransferase 15 U/L (15-37); BUN/Creatinine Ratio 12.5; Blood Urea Nitrogen 8 mg/dL (7-18); Calcium 6.2 mg/dL (8.5-10.1); Carbon Dioxide 25 mmol/L (21-32); Chloride 102 mmol/L (98-107); GFR African American 147 mL/min; GFR Non-African American 121 mL/min; Glucose 98 mg/dL (74-106); Magnesium 1.9 mg/dL (1.6-2.6); Potassium 3.1 mmol/L (3.5-5.1); Sodium 138 mmol/L (136-145)
[2017-10-15 23:14] LABS: Urine Bacteria NONE SEEN /hpf (None Seen); Urine Blood Negative /uL (Negative); Urine Mucus FEW (None Seen); Urine Specific Gravity 1.026 (1.001-1.035); Urine WBC 2 /hpf (0 - 5)
[2017-10-15 23:19] LABS: Alkaline Phosphatase 117 U/L (45-117); Bilirubin, Total 0.3 mg/dL (0.2-1.0); Total Protein 8.1 g/dL (6.4-8.2)
[2017-10-15 23:29] LABS: Alcohol, Urine < 3.0 mg/dL (0-5); Amphetamine Screen, Urine NEGATIVE (NEGATIVE); Barbiturate Scree,Urine NEGATIVE (NEGATIVE); Benzodiazephine Screen, Urine NEGATIVE (NEGATIVE); Cannabinoid Screen, Urine NEGATIVE (NEGATIVE); Cocaine Screen, Urine NEGATIVE (NEGATIVE); Opiate Scree,Urine NEGATIVE (NEGATIVE); Phencyclidine Screen, Urine NEGATIVE (NEGATIVE)
[2017-10-16] MEDS ORDERED: LORazepam 2MG/ML-1ML VIAL IV ONE (02:15)
[2017-10-16 03:23] LABS: INR 0.96 (0.9-1.15); Partial Thromboplastin Time 28.5 sec (22.64-33.71); Prothrombin Time 10.5 sec (9.37-12.3)
[2017-10-16 05:30] VITALS: BP 113/64
== END 2017-10-16 06:30 | disposition home or self-care (01) ==
LOC: ER 21:36
DX: F41.9 Anxiety disorder, unspecified (principal); E07.89 Other specified disorders of thyroid; Z98.51 Tubal ligation status; Z90.89 Acquired absence of other organs; Z88.8 Allergy status to other drugs, medicaments and biological substances
CPT/HCPCS: 36415; 71045; 80053; 80307; 81001; 83735; 83880; 84484; 85025; 85379; 85610; 85730; 93005; 96374; 99285; J2060

== ENCOUNTER 2017-10-16 14:22 | Inpatient (IN) | payer MEDICAID, OTHER ==
[~2017-10-16] VITALS: Ht 170.2 cm; Wt 118.3 kg
[2017-10-16 18:13] LABS: Basophils # (auto) 0 uL; Basophils % (auto) 0.4 % (0.0-2.0); Eosinophils # (auto) 0.1 uL; Hemoglobin 10.4 g/dL (12.2-16.2); Lymphocytes # (auto) 1.4 uL; Monocytes # (auto) 0.4 uL; Platelet Count (auto) 291 10^3/uL (140-450)
[2017-10-16 18:15] LABS: Eosinophils % (auto) 1.8 % (0.0-7.0); Hematocrit 32.3 % (36.0-46.0); Lymphocytes % (auto) 20.4 % (10.0-50.0); Mean Corpuscular Hemoglobin 23.9 pg (28.0-32.0); Mean Corpuscular Hgb Conc. 32.3 g/dL (32.0-36.0); Mean Corpuscular Volume 74.1 fL (80.0-100.0); Monocytes % (auto) 6.3 % (0.0-12.0); Neutrophils # (auto) 4.8 uL; Neutrophils % (auto) 71.1 % (37.0-80.0); Nucleated Red Blood Cells % 0.1 %; Red Blood Cells 4.36 10^6/uL (4.0-5.20); Red Cell Distribution Width 16.5 % (11.8-14.3); White Blood Cell 6.7 10^3/uL (4.4-10.8)
[2017-10-16 18:37] LABS: Alanine Aminotransferase 19 U/L (13-56); Albumin 3.6 g/dL (3.4-5.0); Alkaline Phosphatase 113 U/L (45-117); Anion Gap 13 (5-15); Aspartate Aminotransferase 15 U/L (15-37); BUN/Creatinine Ratio 11.9; Bilirubin, Total 0.2 mg/dL (0.2-1.0); Blood Urea Nitrogen 8 mg/dL (7-18); Calcium 6.6 mg/dL (8.5-10.1); Carbon Dioxide 25 mmol/L (21-32); Chloride 103 mmol/L (98-107); GFR African American 139 mL/min; GFR Non-African American 115 mL/min; Glucose 75 mg/dL (74-106); Potassium 3.6 mmol/L (3.5-5.1); Sodium 141 mmol/L (136-145); Total Protein 7.9 g/dL (6.4-8.2)
[2017-10-16] MEDS ORDERED: SODIUM CHLORIDE 0.9% 1,000 ML IVB ONE (20:35)
[2017-10-16] MEDS ORDERED: CALCIUM GLUC 4.65meq/50ml D5AE 50 ML IV ONE ×2 (20:45→22:15)
[2017-10-16] MEDS ORDERED: ASPirin 81 mg TAB PO ONE (20:45)
[2017-10-16 21:01] LABS: INR 0.95 (0.9-1.15); Partial Thromboplastin Time 28.6 sec (22.64-33.71); Prothrombin Time 10.4 sec (9.37-12.3)
[2017-10-16] MEDS ORDERED: ACETAMINOPHEN 325 MG TAB PO PRN (22:15)
[2017-10-16] MEDS ORDERED: DOCUSATE SOD 100 MG CAP PO PRN (22:15)
[2017-10-16] MEDS ORDERED: NITROGLYCERIN 0.4 MG SL TAB SL PRN (22:15)
[2017-10-16 23:10] VITALS: BP 120/63
[2017-10-17 05:00] VITALS: BP 109/75
[2017-10-17] MEDS: CALCITRIOL 0.25 MCG CAP PO SCH ×3 (05:49→21:53)
[2017-10-17] MEDS: LEVOTHYROXINE SODIUM 100 MCG TAB PO SCH (05:50)
[2017-10-17] MEDS: FERROUS SULFATE 325 MG TAB PO SCH ×2 (08:36→18:00)
[2017-10-17 09:00] VITALS: BP 100/44
[2017-10-17] MEDS: LEVETIRACETAM 500 MG TAB PO SCH ×2 (09:40→21:54)
[2017-10-17] MEDS: ASPirin 81 mg TAB PO SCH (09:41)
[2017-10-17] MEDS: ENOXAPARIN SOD 40 MG/0.4 ML SYRINGE SC SCH (09:41)
[2017-10-17] MEDS: FAMOTIDINE 20 MG TAB PO SCH ×2 (09:41→21:53)
[2017-10-17 13:00] VITALS: BP 113/70
[2017-10-17 17:00] VITALS: BP 128/64
[2017-10-17] MEDS: TEMAZEPAM 15 MG CAP PO PRN (21:54)
[2017-10-17 22:00] VITALS: BP 115/65
[2017-10-18 05:37] VITALS: BP 120/74
[2017-10-18] MEDS: CALCITRIOL 0.25 MCG CAP PO SCH ×3 (05:59→21:57)
[2017-10-18] MEDS: LEVOTHYROXINE SODIUM 100 MCG TAB PO SCH (06:00)
[2017-10-18 07:00] LABS: Potassium 3.6 mmol/L (3.5-5.1)
[2017-10-18 07:05] LABS: Albumin 3.2 g/dL (3.4-5.0); BUN/Creatinine Ratio 11.9; Calcium 6.6 mg/dL (8.5-10.1)
[2017-10-18 07:15] LABS: Bilirubin, Total 0.2 mg/dL (0.2-1.0); Total Protein 7.1 g/dL (6.4-8.2)
[2017-10-18 09:00] VITALS: BP_SYST 107; BP_SYST 138; BP_DIAS 57; BP_DIAS 65
[2017-10-18] MEDS ORDERED: CALCIUM GLUC 4.65meq/50ml D5AE 50 ML IV ONE (10:00)
[2017-10-18] MEDS ORDERED: ERGOCALCIFEROL 50,000 UNIT(1.25MG) CAP PO SCH (10:30)
[2017-10-18 11:13] VITALS: BP 131/76
[2017-10-18] MEDS: ENOXAPARIN SOD 40 MG/0.4 ML SYRINGE SC SCH (12:04)
[2017-10-18] MEDS: FERROUS SULFATE 325 MG TAB PO SCH ×2 (12:05→18:13)
[2017-10-18] MEDS: ASPirin 81 mg TAB PO SCH (12:05)
[2017-10-18] MEDS: FAMOTIDINE 20 MG TAB PO SCH ×2 (12:05→21:57)
[2017-10-18] MEDS: LEVETIRACETAM 500 MG TAB PO SCH ×2 (12:05→21:58)
[2017-10-18] MEDS: MORPHINE SULFATE 4 MG/ML SYR/VIAL IV PRN (13:57)
[2017-10-18 14:43] VITALS: BP 116/65
[2017-10-18] MEDS: ONDANSETRON HCL 4 MG/2 ML VIAL IV PRN (16:41)
[2017-10-18 18:23] VITALS: BP 119/64
[2017-10-18] MEDS: TEMAZEPAM 15 MG CAP PO PRN (21:58)
[2017-10-18 22:40] VITALS: BP 114/64
[2017-10-19] MEDS: MORPHINE SULFATE 4 MG/ML SYR/VIAL IV PRN (05:13)
[2017-10-19] MEDS: ONDANSETRON HCL 4 MG/2 ML VIAL IV PRN (05:18)
[2017-10-19 05:26] VITALS: BP 102/60
[2017-10-19 05:52] LABS: Albumin 3.1 g/dL (3.4-5.0); Calcium 6.4 mg/dL (8.5-10.1); Potassium 3.7 mmol/L (3.5-5.1)
[2017-10-19 05:54] LABS: BUN/Creatinine Ratio 17.1
[2017-10-19 05:57] LABS: Bilirubin, Total 0.2 mg/dL (0.2-1.0); Total Protein 7.1 g/dL (6.4-8.2)
[2017-10-19] MEDS: CALCITRIOL 0.25 MCG CAP PO SCH ×3 (06:02→21:57)
[2017-10-19] MEDS: LEVOTHYROXINE SODIUM 100 MCG TAB PO SCH (06:02)
[2017-10-19] MEDS: FERROUS SULFATE 325 MG TAB PO SCH ×2 (08:56→18:01)
[2017-10-19 09:00] VITALS: BP 126/74
[2017-10-19] MEDS ORDERED: CALCIUM GLUC 4.65meq/50ml D5AE 50 ML IV SCH (10:00)
[2017-10-19] MEDS: ENOXAPARIN SOD 40 MG/0.4 ML SYRINGE SC SCH (10:21)
[2017-10-19] MEDS: LEVETIRACETAM 500 MG TAB PO SCH ×2 (10:21→21:56)
[2017-10-19] MEDS: FAMOTIDINE 20 MG TAB PO SCH ×2 (10:22→21:57)
[2017-10-19] MEDS: ASPirin 81 mg TAB PO SCH (10:22)
[2017-10-19 12:52] VITALS: BP 111/55
[2017-10-19] MEDS: CALCIUM GLUC 4.65meq/50ml D5AE 50 ML IV SCH ×2 (16:14→21:58)
[2017-10-19 16:33] VITALS: BP 112/62
[2017-10-19] MEDS: TEMAZEPAM 15 MG CAP PO PRN (21:57)
[2017-10-19 22:00] VITALS: BP 115/76
[2017-10-20] MEDS: ONDANSETRON HCL 4 MG/2 ML VIAL IV PRN (02:21)
[2017-10-20] MEDS: MORPHINE SULFATE 4 MG/ML SYR/VIAL IV PRN (02:21)
[2017-10-20] MEDS: CALCIUM GLUC 4.65meq/50ml D5AE 50 ML IV SCH (04:27)
[2017-10-20 05:35] VITALS: BP 106/57
[2017-10-20 06:03] LABS: Alanine Aminotransferase 15 U/L (13-56); Albumin 3.1 g/dL (3.4-5.0); Alkaline Phosphatase 97 U/L (45-117); Anion Gap 11 (5-15); Aspartate Aminotransferase 14 U/L (15-37); Bilirubin, Total < 0.1 mg/dL (0.2-1.0); Blood Urea Nitrogen 7 mg/dL (7-18); Calcium 7.5 mg/dL (8.5-10.1); Carbon Dioxide 24 mmol/L (21-32); Chloride 105 mmol/L (98-107); GFR African American 132 mL/min; GFR Non-African American 109 mL/min; Glucose 108 mg/dL (74-106); Magnesium 1.9 mg/dL (1.6-2.6); Potassium 3.7 mmol/L (3.5-5.1); Sodium 140 mmol/L (136-145); Total Protein 6.7 g/dL (6.4-8.2)
[2017-10-20] MEDS: LEVOTHYROXINE SODIUM 100 MCG TAB PO SCH (06:06)
[2017-10-20] MEDS: CALCITRIOL 0.25 MCG CAP PO SCH (06:06)
[2017-10-20 08:00] VITALS: BP 126/70
[2017-10-20] MEDS: FERROUS SULFATE 325 MG TAB PO SCH (08:10)
[2017-10-20 08:57] VITALS: BP 117/50
[2017-10-20] MEDS: ENOXAPARIN SOD 40 MG/0.4 ML SYRINGE SC SCH (09:51)
[2017-10-20] MEDS: ASPirin 81 mg TAB PO SCH (09:51)
[2017-10-20] MEDS: FAMOTIDINE 20 MG TAB PO SCH (09:51)
[2017-10-20] MEDS: LEVETIRACETAM 500 MG TAB PO SCH (09:52)
[2017-10-20 12:42] VITALS: BP 117/50
[2017-10-20 12:44] VITALS: BP 106/93
== END 2017-10-20 14:00 | disposition home or self-care (01) | DRG 203 ==
LOC: ER 14:24 → TELE 14:25 → TELE-WESTW 23:10
PROVIDERS: ADMIT Nurse Practitioner; ATTEND Internal Medicine
DX: M94.0 Chondrocostal junction syndrome [Tietze] (principal); E44.1 Mild protein-calorie malnutrition; E66.01 Morbid (severe) obesity due to excess calories; F41.9 Anxiety disorder, unspecified; D50.9 Iron deficiency anemia, unspecified; E87.6 Hypokalemia; R94.6 Abnormal results of thyroid function studies; E89.0 Postprocedural hypothyroidism; G40.909 Epilepsy, unspecified, not intractable, without status epilepticus; E20.9 Hypoparathyroidism, unspecified; Z68.41 Body mass index [BMI] 40.0-44.9, adult; Z82.3 Family history of stroke; Z82.49 Family history of ischemic heart disease and other diseases of the circulatory system; Z83.3 Family history of diabetes mellitus; Z85.850 Personal history of malignant neoplasm of thyroid; Z88.6 Allergy status to analgesic agent; Z79.899 Other long term (current) drug therapy; Z90.89 Acquired absence of other organs; Z80.8 Family history of malignant neoplasm of other organs or systems; G47.00 Insomnia, unspecified
CPT/HCPCS: 36415; 80053; 81025; 83735; 83880; 84443; 84484; 85025; 85610; 85730; 87081; 93005; 93017; 93306; 94761; 96361; 96365; 96366; J0610; J2405

== ENCOUNTER 2018-01-22 13:45 | Emergency (ER) | payer MEDICAID, OTHER ==
[~2018-01-22] VITALS: Ht 170.2 cm; Wt 102.1 kg
[2018-01-22] MEDS ORDERED: SODIUM CHLORIDE 0.9% 1,000 ML IV ONE (14:45)
[2018-01-22] MEDS ORDERED: ONDANSETRON HCL 4 MG/2 ML VIAL IV ONE (14:45)
[2018-01-22 15:31] LABS: Basophils # (auto) 0 uL; Eosinophils # (auto) 0.1 uL
[2018-01-22 15:33] LABS: Basophils % (auto) 0.4 % (0.0-2.0); Eosinophils % (auto) 1.3 % (0.0-7.0); Hematocrit 34.4 % (36.0-46.0); Hemoglobin 11.3 g/dL (12.2-16.2); Lymphocytes # (auto) 1.5 uL; Lymphocytes % (auto) 21.6 % (10.0-50.0); Mean Corpuscular Hemoglobin 25.5 pg (28.0-32.0); Mean Corpuscular Hgb Conc. 32.8 g/dL (32.0-36.0); Mean Corpuscular Volume 77.6 fL (80.0-100.0); Monocytes # (auto) 0.5 uL; Monocytes % (auto) 6.4 % (0.0-12.0); Neutrophils % (auto) 70.3 % (37.0-80.0); Nucleated Red Blood Cells % 0.1 %; Platelet Count (auto) 301 10^3/uL (140-450); Red Blood Cells 4.43 10^6/uL (4.0-5.20); Red Cell Distribution Width 17.3 % (11.8-14.3); White Blood Cell 7.1 10^3/uL (4.4-10.8)
[2018-01-22 15:58] LABS: Albumin 3.5 g/dL (3.4-5.0); BUN/Creatinine Ratio 16.2; Bilirubin, Total 0.3 mg/dL (0.2-1.0); Calcium 7.4 mg/dL (8.5-10.1); Magnesium 1.9 mg/dL (1.6-2.6); Potassium 3.6 mmol/L (3.5-5.1); Total Protein 7.9 g/dL (6.4-8.2)
[2018-01-22] MEDS ORDERED: KETOROLAC TROMETH 30 MG/ML 1ML VIAL IV ONE (16:15)
[2018-01-22 17:13] LABS: Urine Bacteria NONE SEEN /hpf (None Seen); Urine Blood 2+ /uL (Negative); Urine Specific Gravity 1.021 (1.001-1.035); Urine WBC 5 /hpf (0 - 5)
[2018-01-22 17:55] VITALS: BP 121/88
== END 2018-01-22 17:36 | disposition home or self-care (01) ==
LOC: ER 13:47
DX: N39.0 Urinary tract infection, site not specified (principal); R11.2 Nausea with vomiting, unspecified; Z88.6 Allergy status to analgesic agent; Z98.51 Tubal ligation status
CPT/HCPCS: 36415; 74176; 80053; 81001; 82150; 83690; 83735; 85025; 96361; 96374; 96375; 99285; J1885; J2405; J7030

== ENCOUNTER 2018-02-07 20:45 | Inpatient (IN) | payer MEDICAID, OTHER ==
[~2018-02-07] VITALS: Ht 172.7 cm; Wt 117.5 kg
[2018-02-07 22:00] LABS: Basophils # (auto) 0 uL; Eosinophils # (auto) 0.1 uL; Hemoglobin 10.8 g/dL (12.2-16.2); Mean Corpuscular Hemoglobin 25.4 pg (28.0-32.0); Mean Corpuscular Hgb Conc. 32.9 g/dL (32.0-36.0); Monocytes # (auto) 0.5 uL; Neutrophils # (auto) 4.3 uL
[2018-02-07 22:03] LABS: Basophils % (auto) 0.4 % (0.0-2.0); Eosinophils % (auto) 2.1 % (0.0-7.0); Hematocrit 32.7 % (36.0-46.0); Lymphocytes # (auto) 1.4 uL; Lymphocytes % (auto) 21.9 % (10.0-50.0); Mean Corpuscular Volume 77.3 fL (80.0-100.0); Neutrophils % (auto) 67.6 % (37.0-80.0); Nucleated Red Blood Cells % 0.1 %; Platelet Count (auto) 255 10^3/uL (140-450); Red Blood Cells 4.23 10^6/uL (4.0-5.20); Red Cell Distribution Width 16.8 % (11.8-14.3); White Blood Cell 6.3 10^3/uL (4.4-10.8)
[2018-02-07 22:14] LABS: Albumin 3.2 g/dL (3.4-5.0); Calcium 6.2 mg/dL (8.5-10.1); Potassium 3.7 mmol/L (3.5-5.1)
[2018-02-07 22:17] LABS: Bilirubin, Total 0.2 mg/dL (0.2-1.0); Total Protein 7.2 g/dL (6.4-8.2)
[2018-02-08] MEDS ORDERED: SODIUM CHLORIDE 0.9% 1,000 ML IV ONE (07:21)
[2018-02-08] MEDS ORDERED: KETOROLAC TROMETH 30 MG/ML 1ML VIAL IV ONE (07:30)
[2018-02-08] MEDS ORDERED: CALCIUM GLUC 4.65meq/50ml D5AE 50 ML IV ONE (07:45)
[2018-02-08 08:20] LABS: Urine Bacteria FEW /hpf (None Seen); Urine Blood Negative /uL (Negative); Urine Mucus FEW (None Seen); Urine Specific Gravity 1.027 (1.001-1.035); Urine WBC 1 /hpf (0 - 5)
[2018-02-08 08:30] LABS: Alcohol, Urine < 3.0 mg/dL (0-5); Amphetamine Screen, Urine NEGATIVE (NEGATIVE); Barbiturate Scree,Urine NEGATIVE (NEGATIVE); Benzodiazephine Screen, Urine NEGATIVE (NEGATIVE); Cannabinoid Screen, Urine NEGATIVE (NEGATIVE); Cocaine Screen, Urine NEGATIVE (NEGATIVE); Opiate Scree,Urine NEGATIVE (NEGATIVE); Phencyclidine Screen, Urine NEGATIVE (NEGATIVE)
[2018-02-08] MEDS ORDERED: CALCIUM CHL 100MG/ML 1,000 MG in D5W 5% 100 ML IV ONE (11:30)
[2018-02-08] MEDS ORDERED: hydrOXYzine 25 MG TAB or CAP PO ONE (12:45)
[2018-02-08] MEDS ORDERED: KETOROLAC TROMETH 30 MG/ML 1ML VIAL IV PRN (14:00)
[2018-02-08] MEDS ORDERED: NITROGLYCERIN 0.4 MG SL TAB SL PRN (14:00)
[2018-02-08] MEDS ORDERED: ERGOCALCIFEROL 50,000 UNIT(1.25MG) CAP PO SCH (14:00)
[2018-02-08] MEDS ORDERED: MORPHINE SULF INJ 2 MG/ML SYRINGE 1ML IV PRN (14:00)
[2018-02-08] MEDS ORDERED: LORazepam 2MG/ML-1ML VIAL IV PRN (14:00)
[2018-02-08] MEDS ORDERED: CALCITRIOL 0.25 MCG CAP PO SCH (14:00)
[2018-02-08] MEDS ORDERED: LEVOTHYROXINE SODIUM 100 MCG TAB PO ONE (14:15)
[2018-02-08] MEDS: MAGNESIUM SULFATE 1GM/100ML 100 ML IV SCH ×2 (14:16→15:35)
[2018-02-08] MEDS ORDERED: LEVETIRACETAM 500 MG TAB PO ONE (14:30)
[2018-02-08] MEDS: CALCIUM W/VIT D (600MG/400IU) TAB PO SCH (18:11)
[2018-02-08 21:15] VITALS: BP 142/89
[2018-02-08] MEDS ORDERED: [UNRECOGNIZED DRUG - CODE] SC (21:25)
[2018-02-08] MEDS ORDERED: POM BC (21:32)
[2018-02-08] MEDS: LEVETIRACETAM 500 MG TAB PO SCH (21:59)
[2018-02-08 22:00] VITALS: BP 142/89
[2018-02-09 05:40] VITALS: BP 103/60
[2018-02-09 06:31] LABS: BUN/Creatinine Ratio 12.2; Magnesium 2.7 mg/dL (1.6-2.6); Potassium 3.9 mmol/L (3.5-5.1)
[2018-02-09] MEDS ORDERED: LEVOTHYROXINE SODIUM 100 MCG TAB PO SCH (07:00)
[2018-02-09 09:23] VITALS: BP 123/74
[2018-02-09] MEDS ORDERED: [UNRECOGNIZED DRUG - OTHER] SC SCH (10:00)
[2018-02-09] MEDS ORDERED: TIROSINT 150 MCG PO SCH (10:00)
[2018-02-09] MEDS: CALCIUM W/VIT D (600MG/400IU) TAB PO SCH ×2 (10:35→12:24)
[2018-02-09] MEDS: LEVETIRACETAM 500 MG TAB PO SCH (10:35)
[2018-02-09 12:35] VITALS: BP 109/82
[2018-02-09 16:58] VITALS: BP 129/83
[2018-02-15] MEDS ORDERED: ERGOCALCIFEROL 50,000 UNIT(1.25MG) CAP PO SCH (12:00)
== END 2018-02-09 18:03 | disposition home or self-care (01) | DRG 424 ==
LOC: EDBD 20:45 → ER 20:54 → TELE 20:55 → TELE-WESTW 02-08 20:56
PROVIDERS: ADMIT Internal Medicine; ATTEND Internal Medicine
DX: E20.9 Hypoparathyroidism, unspecified (principal); E83.51 Hypocalcemia; E66.9 Obesity, unspecified; G40.909 Epilepsy, unspecified, not intractable, without status epilepticus; N39.0 Urinary tract infection, site not specified; Z68.39 Body mass index [BMI] 39.0-39.9, adult; Z88.6 Allergy status to analgesic agent; Z91.048 Other nonmedicinal substance allergy status; E89.0 Postprocedural hypothyroidism; Z82.3 Family history of stroke; Z82.49 Family history of ischemic heart disease and other diseases of the circulatory system; Z83.3 Family history of diabetes mellitus; Z80.9 Family history of malignant neoplasm, unspecified; F41.9 Anxiety disorder, unspecified
CPT/HCPCS: 36415; 80048; 80053; 80307; 81001; 81025; 82310; 83735; 84443; 85025; 87086; 96365; 96375; J0610; J1885; J7060

== ENCOUNTER 2018-06-08 15:48 | Emergency (ER) | payer MEDICAID ==
[~2018-06-08] VITALS: Ht 172.7 cm; Wt 117.9 kg
[~2018-06-08 15:48] MED LIST changes: -DOCU100T7 PO; -LEVO200I5 PO; +POM BC; +[UNRECOGNIZED DRUG - CODE] SC
[2018-06-08 17:26] LABS: Alanine Aminotransferase 27 U/L (13-56); Albumin 3.5 g/dL (3.4-5.0); Anion Gap 16 (5-15); Aspartate Aminotransferase 29 U/L (15-37); BUN/Creatinine Ratio 9.8; Blood Urea Nitrogen 8 mg/dL (7-18); Carbon Dioxide 25 mmol/L (21-32); Chloride 101 mmol/L (98-107); GFR African American 109 mL/min; GFR Non-African American 90 mL/min; Glucose 104 mg/dL (74-106); Potassium 3.6 mmol/L (3.5-5.1); Sodium 142 mmol/L (136-145)
[2018-06-08 17:28] LABS: Alkaline Phosphatase 99 U/L (45-117); Bilirubin, Total 0.3 mg/dL (0.2-1.0); Total Protein 7.7 g/dL (6.4-8.2)
[2018-06-08 17:31] LABS: Basophils # (auto) 0 uL; Eosinophils # (auto) 0.3 uL; Eosinophils % (auto) 3.8 % (0.0-7.0); Hemoglobin 10.5 g/dL (12.2-16.2); Monocytes # (auto) 0.4 uL; Monocytes % (auto) 5.3 % (0.0-12.0); Nucleated Red Blood Cells % 0.1 %
[2018-06-08 17:34] LABS: Basophils % (auto) 0.6 % (0.0-2.0); Hematocrit 32.7 % (36.0-46.0); Lymphocytes % (auto) 25.9 % (10.0-50.0); Mean Corpuscular Hemoglobin 24.2 pg (28.0-32.0); Mean Corpuscular Hgb Conc. 32.1 g/dL (32.0-36.0); Mean Corpuscular Volume 75.4 fL (80.0-100.0); Neutrophils % (auto) 64.4 % (37.0-80.0); Platelet Count (auto) 295 10^3/uL (140-450); Red Blood Cells 4.33 10^6/uL (4.0-5.20); Red Cell Distribution Width 17.5 % (11.8-14.3); White Blood Cell 7.7 10^3/uL (4.4-10.8)
[2018-06-08 18:39] LABS: Calcium < 5.0 mg/dL (8.5-10.1)
[2018-06-08 18:43] LABS: Urine Bacteria FEW /hpf (None Seen); Urine Blood Negative /uL (Negative); Urine Mucus FEW (None Seen); Urine Specific Gravity 1.026 (1.001-1.035); Urine WBC 3 /hpf (0 - 5)
[2018-06-08 22:30] VITALS: BP 126/86
== END 2018-06-09 01:51 | disposition left against medical advice (07) ==
LOC: ER 15:50
DX: R79.9 Abnormal finding of blood chemistry, unspecified (principal); Z53.21 Procedure and treatment not carried out due to patient leaving prior to being seen by health care provider
CPT/HCPCS: 36415; 80053; 81001; 85025

== ENCOUNTER 2018-06-27 16:09 | Inpatient (IN) | payer MEDICAID ==
[~2018-06-27] VITALS: Ht 172.7 cm; Wt 116.1 kg
[2018-06-27 17:32] LABS: Basophils # (auto) 0 uL; Eosinophils # (auto) 0.1 uL; Hemoglobin 10.7 g/dL (12.2-16.2); Monocytes # (auto) 0.4 uL; Neutrophils # (auto) 4.4 uL
[2018-06-27 17:34] LABS: Basophils % (auto) 0.6 % (0.0-2.0); Eosinophils % (auto) 1.8 % (0.0-7.0); Hematocrit 32.7 % (36.0-46.0); Lymphocytes % (auto) 29.2 % (10.0-50.0); Mean Corpuscular Hemoglobin 24.5 pg (28.0-32.0); Mean Corpuscular Hgb Conc. 32.6 g/dL (32.0-36.0); Mean Corpuscular Volume 75.2 fL (80.0-100.0); Monocytes % (auto) 5.1 % (0.0-12.0); Neutrophils % (auto) 63.3 % (37.0-80.0); Nucleated Red Blood Cells % 0.1 %; Platelet Count (auto) 296 10^3/uL (140-450); Red Blood Cells 4.35 10^6/uL (4.0-5.20); Red Cell Distribution Width 18.8 % (11.8-14.3)
[2018-06-27 17:42] LABS: Urine Bacteria FEW /hpf (None Seen); Urine Blood 1+ /uL (Negative); Urine Mucus FEW (None Seen); Urine Specific Gravity 1.017 (1.001-1.035); Urine WBC 4 /hpf (0 - 5)
[2018-06-27 17:45] LABS: Alanine Aminotransferase 23 U/L (13-56); Albumin 3.8 g/dL (3.4-5.0); Anion Gap 8 (5-15); Aspartate Aminotransferase 24 U/L (15-37); BUN/Creatinine Ratio 9.5; Blood Urea Nitrogen 8 mg/dL (7-18); Carbon Dioxide 27 mmol/L (21-32); Chloride 103 mmol/L (98-107); GFR African American > 60 mL/min; GFR Non-African American > 60 mL/min; Glucose 82 mg/dL (74-106); Potassium 3.3 mmol/L (3.5-5.1); Sodium 138 mmol/L (136-145)
[2018-06-27 17:48] LABS: Alkaline Phosphatase 101 U/L (45-117); Bilirubin, Total 0.3 mg/dL (0.2-1.0)
[2018-06-27 17:58] LABS: Calcium 5.2 mg/dL (8.5-10.1)
[2018-06-27] MEDS ORDERED: CALCIUM CHL 100MG/ML 1,000 MG in D5W 5% 100 ML IV ONE (18:15)
[2018-06-27] MEDS ORDERED: cefTRIAXone 1GM/50ML D5W 50 ML IV ONE (19:00)
[2018-06-27] MEDS ORDERED: MORPHINE SULFATE 10 MG/ML INJ 1ML SDV IV PRN (19:45)
[2018-06-27] MEDS ORDERED: ACETAMINOPHEN 500 MG TAB PO PRN (19:45)
[2018-06-27] MEDS ORDERED: POTASSIUM CHL 20 Meq TABLET PO ONE (20:00)
[2018-06-27 20:11] LABS: Magnesium 2.1 mg/dL (1.6-2.6); Phosphorus 5.6 mg/dL (2.5-4.90)
--- NOTE | 2018-06-27 21:50 | NUR ---
OPENING NOTES RECEIVED PATIENT FROM ER. PATIENT IS AWAKE AND ALERT X 4 WITH NO S/S OF DISTRESS NOR PAIN. PATIENT HAS MODERATE STRENGTH ON ALL 4 EXTREMITIES. BED IS IN LOWEST POSITION AND BRAKES ARE LOCKED WITH THE CALL LIGHT WITH IN REACH. SIDE RAILS UP X 4 AND PADDED FOR PATIENT SAFETY.
[2018-06-27 22:00] VITALS: BP 121/78
[2018-06-27] MEDS: LEVETIRACETAM 500 MG TAB PO SCH (22:32)
[2018-06-27] MEDS ORDERED: CALC0.5C PO (23:40)
[2018-06-27] MEDS ORDERED: CHOL500021 PO (23:40)
[2018-06-27] MEDS ORDERED: CALC1TAB95 PO (23:40)
[2018-06-28 05:48] VITALS: BP 109/67
--- NOTE | 2018-06-28 07:20 | NUR ---
Opening Shift Note Assumed care of patient, awake and alert. No S/S of distress/SOB or pain. Instructed on POC-continue IV antibiotic, calcium supplement as ordered. Patient informed to call for assist PRN, will continue to monitor for changes Q1hr and PRN.
[2018-06-28 07:27] LABS: Basophils # (auto) 0 uL; Eosinophils # (auto) 0.1 uL; Hemoglobin 11.2 g/dL (12.2-16.2); Monocytes # (auto) 0.3 uL
[2018-06-28 07:30] LABS: Basophils % (auto) 0.5 % (0.0-2.0); Eosinophils % (auto) 1.5 % (0.0-7.0); Hematocrit 34.9 % (36.0-46.0); Lymphocytes # (auto) 1.8 uL; Lymphocytes % (auto) 27.8 % (10.0-50.0); Mean Corpuscular Hemoglobin 24.4 pg (28.0-32.0); Mean Corpuscular Hgb Conc. 31.9 g/dL (32.0-36.0); Mean Corpuscular Volume 76.5 fL (80.0-100.0); Monocytes % (auto) 4.9 % (0.0-12.0); Neutrophils # (auto) 4.3 uL; Neutrophils % (auto) 65.3 % (37.0-80.0); Nucleated Red Blood Cells % 0.2 %; Platelet Count (auto) 294 10^3/uL (140-450); Red Blood Cells 4.57 10^6/uL (4.0-5.20); Red Cell Distribution Width 18.7 % (11.8-14.3); White Blood Cell 6.5 10^3/uL (4.4-10.8)
[2018-06-28 07:45] LABS: Anion Gap 10 (5-15); Blood Urea Nitrogen 7 mg/dL (7-18); Calcium 6.1 mg/dL (8.5-10.1); Carbon Dioxide 24 mmol/L (21-32); Chloride 104 mmol/L (98-107); Potassium 3.7 mmol/L (3.5-5.1); Sodium 138 mmol/L (136-145)
[2018-06-28 07:48] LABS: BUN/Creatinine Ratio 8.5; GFR African American > 60 mL/min; GFR Non-African American > 60 mL/min; Glucose 92 mg/dL (74-106)
[2018-06-28] MEDS: CALCIUM CARB 500 MG CHEW TAB PO SCH ×3 (08:57→17:37)
[2018-06-28 09:00] VITALS: BP_SYST 112; BP_SYST 157; BP_DIAS 73; BP_DIAS 81
[2018-06-28] MEDS ORDERED: cefTRIAXone 1GM/50ML D5W 50 ML IV SCH (09:00)
[2018-06-28] MEDS: LEVETIRACETAM 500 MG TAB PO SCH (10:18)
[2018-06-28 11:31] LABS: Free T4 (Free Thyroxine) 0.45 ng/dL (0.89-1.76); T3 Total 0.43 ng/mL (0.60-1.81)
[2018-06-28 12:40] VITALS: BP 106/72
[2018-06-28] MEDS ORDERED: LEVO200T7 PO (13:02)
[2018-06-28] MEDS ORDERED: LEVOTHYROXINE SODIUM 100 MCG TAB PO ONE (13:15)
[2018-06-28] MEDS ORDERED: LEVO25CA PO (13:26)
[2018-06-28] MEDS ORDERED: CALC1WAF PO (13:29)
[2018-06-28] MEDS ORDERED: ACETAMINOPHEN 500 MG TAB PO PRN (13:45)
[2018-06-28] MEDS ORDERED: MORPHINE SULFATE 4 MG/ML SYR/VIAL IV PRN (13:45)
[2018-06-28] MEDS ORDERED: TIROSINT 100 MCG PO ONE (15:00)
[2018-06-28] MEDS ORDERED: LEVOTHYROXINE SODIUM 25 MCG TAB PO ONE (15:00)
--- NOTE | 2018-06-28 15:26 | NUR ---
Contacted Kathy, Senior Designer re: social service consult: home health evaluation.
--- NOTE | 2018-06-28 15:40 | NUR ---
Went to [facility] office to follow up on Social Service consult, but no one is there in the office.
--- NOTE | 2018-06-28 15:55 | NUR ---
Contacted Dr. Greene, patient is vomiting and there is no anti-nausea/vomiting medication ordered. Also informed MD that patient is crying due to intense leg cramps and patient is asking to stay one more night tonight and recheck Calcium level again. Also asked MD if he wanted to start Calcitriol 75 mcg today as start date on the order is tomorrow. Awaiting call back from .
--- NOTE | 2018-06-28 16:06 | NUR ---
Page Kathy, social service. Awaiting call back.
--- NOTE | 2018-06-28 16:40 | NUR ---
Lukas from [employer] called back and said she is unable to set up home health at this time. Also Primer Inserting Machine Adjuster asked for the reason for home health as it is not in the order. Will ask MD once MD calls back.
--- NOTE | 2018-06-28 16:42 | NUR ---
Contacted Dr. Greene again re: patient's complaints and patient being not stable for discharge. Awaiting call back from .
--- NOTE | 2018-06-28 17:00 | NUR ---
Dr. Greene called back and gave orders to give patient Calcium Chloride 1g IV, give Calcitriol 0.75 mcg po now, Zofran 4mg IV and Tylenol 1,000 mg po. Will carry out orders. MD also stated to discharge patient after 6 pm tonight or whenever she has taken the medications ordered.
[2018-06-28 17:04] VITALS: BP 126/76
--- NOTE | 2018-06-28 17:08 | NUR ---
Called Dr. Greene, informed MD that Dealer Development Manager is unable to set up home health for the patient also, asked MD for the reason for home health evaluation for the patient per Dealer Development Manager Lukas's request. Awaiting call back from .
--- NOTE | 2018-06-28 17:10 | NUR ---
Dr. Greene called back and said do not hold discharge for patient, Director Financial Services can work with home health tomorrow. Reason for home health evaluation is to ensure medication compliance of the patient.
[2018-06-28] MEDS ORDERED: CALCIUM CHL 100MG/ML 1,000 MG in D5W 5% 100 ML IV ONE (17:15)
[2018-06-28] MEDS ORDERED: ONDANSETRON HCL 4 MG/2 ML VIAL IV ONE (17:15)
--- NOTE | 2018-06-28 17:15 | NUR ---
Called Pharmacy, asked to send Calcium Chloride IV as ordered as patient will be discharged after administration of this medicine. Pharmacist said he will ask staff to send it. Awaiting for the medication for now.
[2018-06-28] MEDS ORDERED: CALCITRIOL 0.25 MCG CAP PO SCH (18:00)
--- NOTE | 2018-06-28 18:00 | NUR ---
Charge Nurse Gely came and spoke with the patient at bedside per patient's request to speak with the charge nurse regarding patient's discharge.
--- NOTE | 2018-06-28 19:40 | NUR ---
Discharge Discharge instructions given as ordered. Encourage to follow up with PMD, Nephrology, Endocrinology and GI as instructed. All questions and concerns addressed. Patient verbalized understanding. Home medications held in Pharmacy returned to patient. Patient refused the flu and pneumonia vaccines. IV removed with catheter intact, pressure dressing applied. Patient taken to vehicle via wheelchair with all personal belongings, accompanied by staff and family member. No distress noted at time of departure.
[2018-06-29] MEDS ORDERED: CALCITRIOL 0.25 MCG CAP PO SCH (10:00)
== END 2018-06-28 19:50 | disposition home or self-care (01) | DRG 463 ==
LOC: ER 16:18 → OVERFLOW 19:39 → WEST WING 20:59
PROVIDERS: ADMIT Nurse Practitioner Acute Care; ATTEND Internal Medicine
DX: N39.0 Urinary tract infection, site not specified (principal); E83.51 Hypocalcemia; D50.9 Iron deficiency anemia, unspecified; E20.9 Hypoparathyroidism, unspecified; E87.6 Hypokalemia; F41.9 Anxiety disorder, unspecified; E66.9 Obesity, unspecified; E89.0 Postprocedural hypothyroidism; G40.909 Epilepsy, unspecified, not intractable, without status epilepticus; Z87.440 Personal history of urinary (tract) infections; Z80.41 Family history of malignant neoplasm of ovary; Z82.3 Family history of stroke; Z82.49 Family history of ischemic heart disease and other diseases of the circulatory system; Z83.3 Family history of diabetes mellitus; Z88.5 Allergy status to narcotic agent; Z88.6 Allergy status to analgesic agent
CPT/HCPCS: 36415; 80048; 80053; 81001; 81025; 82306; 82542; 83735; 84100; 84439; 84443; 84480; 85025; 87040; 87081; 87086; 93005; 96365; 96366; 96367; G0378; J0696; J2405; J7060

== ENCOUNTER 2019-02-18 22:46 | Emergency (ER) | payer MEDICAID ==
[~2019-02-18] VITALS: Ht 162.6 cm; Wt 90.7 kg
[~2019-02-18 22:46] MED LIST changes: -CALC0.25 PO; +CALC0.5C PO; -CALC150C PO; +CALC1WAF PO; +CHOL500021 PO; +LEVO200T7 PO; +LEVO25CA2 PO
[2019-02-19 00:27] LABS: Basophils # (auto) 0 uL; Basophils % (auto) 0.4 % (0.0-2.0); Eosinophils # (auto) 0.1 uL; Eosinophils % (auto) 1.5 % (0.0-7.0); Hematocrit 35.7 % (36.0-46.0); Hemoglobin 11.8 g/dL (12.2-16.2); Lymphocytes % (auto) 24.2 % (10.0-50.0); Mean Corpuscular Hemoglobin 27.4 pg (28.0-32.0); Mean Corpuscular Hgb Conc. 32.9 g/dL (32.0-36.0); Mean Corpuscular Volume 83.4 fL (80.0-100.0); Monocytes # (auto) 0.4 uL; Monocytes % (auto) 4.8 % (0.0-12.0); Neutrophils # (auto) 5.6 uL; Neutrophils % (auto) 69.1 % (37.0-80.0); Platelet Count (auto) 267 10^3/uL (140-450); Red Blood Cells 4.28 10^6/uL (4.0-5.20); Red Cell Distribution Width 17.6 % (11.8-14.3); White Blood Cell 8.1 10^3/uL (4.4-10.8)
[2019-02-19 00:45] LABS: Albumin 3.6 g/dL (3.4-5.0); Anion Gap 8 (5-15); BUN/Creatinine Ratio 9.8; Blood Urea Nitrogen 9 mg/dL (7-18); Calcium 6.4 mg/dL (8.5-10.1); Carbon Dioxide 24 mmol/L (21-32); Chloride 103 mmol/L (98-107); GFR African American 95 mL/min; GFR Non-African American 78 mL/min; Glucose 86 mg/dL (74-106); Magnesium 2.3 mg/dL (1.6-2.6); Potassium 5.1 mmol/L (3.5-5.1); Sodium 135 mmol/L (136-145)
[2019-02-19 00:48] LABS: Alanine Aminotransferase 30 U/L (13-56); Alkaline Phosphatase 96 U/L (45-117); Aspartate Aminotransferase 69 U/L (15-37); Bilirubin, Total 0.4 mg/dL (0.2-1.0); Total Protein 7.9 g/dL (6.4-8.2)
[2019-02-19] MEDS ORDERED: CALCIUM GLUC 4.65meq/50ml D5AE 50 ML IV ONE (04:15)
[2019-02-19 11:51] LABS: Urine Bacteria NONE SEEN /hpf (None Seen); Urine Blood Negative /uL (Negative); Urine Specific Gravity 1.014 (1.001-1.035); Urine WBC 1 /hpf (0 - 5)
[2019-02-19 15:51] VITALS: BP 132/81
== END 2019-02-19 16:19 | disposition home or self-care (01) ==
LOC: EDBD 22:46 → ER 22:46
DX: E03.9 Hypothyroidism, unspecified (principal); E20.9 Hypoparathyroidism, unspecified; Z98.51 Tubal ligation status; Z88.8 Allergy status to other drugs, medicaments and biological substances; Z79.899 Other long term (current) drug therapy
CPT/HCPCS: 36415; 80053; 81001; 83735; 84443; 85025; 96365; 99283; J0610; 93005

== ENCOUNTER 2019-06-10 08:32 | Emergency (ER) | payer MEDICAID ==
[~2019-06-10] VITALS: Ht 170.2 cm; Wt 120.2 kg
[2019-06-10 09:15] VITALS: BP 131/79
[2019-06-10] MEDS ORDERED: KETOROLAC TROMETH 60MG/2ML VIAL IM ONE (09:45)
== END 2019-06-10 10:33 | disposition home or self-care (01) ==
LOC: ER 08:35
DX: S83.92XA Sprain of unspecified site of left knee, initial encounter (principal); Z98.51 Tubal ligation status; W19.XXXA Unspecified fall, initial encounter; Y93.01 Activity, walking, marching and hiking; Y92.89 Other specified places as the place of occurrence of the external cause; Y99.8 Other external cause status
CPT/HCPCS: 96372; 99283; J1885

== ENCOUNTER → 2020-02-19 | Emergency (ER) | payer MEDICAID ==
[~2020-02-19] VITALS: Ht 170.2 cm; Wt 117.9 kg
[~2020-02-19] MED LIST changes: -LEVE500T22 PO; +LEVE500T32 PO; +MORPHINE SULF INJ 2 MG/ML SYRINGE 1ML IV ONE; +ONDANSETRON HCL 4 MG/2 ML VIAL IV ONE; +SODIUM CHLORIDE 0.9% 500 ML IV ONE
[2020-02-19 18:26] VITALS: BP 129/92
[2020-02-19 18:54] LABS: Eosinophils # (auto) 0.1 10 ^3/uL (0-0.8); Mean Corpuscular Hemoglobin 25.9 pg (28.0-32.0); Monocytes # (auto) 0.4 10 ^3/uL (0-1.3); Nucleated Red Blood Cells % 0.1 %
[2020-02-19 18:55] LABS: Basophils # (auto) 0 10 ^3/uL (0-0.2); Basophils % (auto) 0.6 % (0.0-2.0); Eosinophils % (auto) 1.4 % (0.0-7.0); Hematocrit 33.8 % (36.0-46.0); Hemoglobin 10.9 g/dL (12.2-16.2); Lymphocytes % (auto) 25.5 % (10.0-50.0); Mean Corpuscular Hgb Conc. 32.4 g/dL (32.0-36.0); Mean Corpuscular Volume 79.9 fL (80.0-100.0); Monocytes % (auto) 5.3 % (0.0-12.0); Neutrophils # (auto) 5.2 10 ^3/uL (1.6-8.6); Neutrophils % (auto) 67.2 % (37.0-80.0); Platelet Count (auto) 250 10^3/uL (140-450); Red Blood Cells 4.24 10^6/uL (4.0-5.20); Red Cell Distribution Width 18.4 % (11.8-14.3); White Blood Cell 7.7 10^3/uL (4.4-10.8)
[2020-02-19 19:10] LABS: Albumin 3.8 g/dL (3.4-5.0); Anion Gap 12 (5-15); BUN/Creatinine Ratio 6.3; Blood Urea Nitrogen 6 mg/dL (7-18); Calcium 6.4 mg/dL (8.5-10.1); Carbon Dioxide 24 mmol/L (21-32); Chloride 101 mmol/L (98-107); GFR African American 91 mL/min; GFR Non-African American 75 mL/min; Glucose 100 mg/dL (74-106); Sodium 137 mmol/L (136-145)
[2020-02-19 19:15] LABS: Alanine Aminotransferase 29 U/L (13-56); Alkaline Phosphatase 91 U/L (45-117); Aspartate Aminotransferase 25 U/L (15-37); Bilirubin, Total 0.4 mg/dL (0.2-1.0); Total Protein 7.9 g/dL (6.4-8.2)
== END | disposition home or self-care (01) ==
LOC: EDUNIT# 18:02 → EDBD 18:03 → ER 18:03
DX: S09.8XXA Other specified injuries of head, initial encounter (principal); R42 Dizziness and giddiness; E87.6 Hypokalemia; F41.9 Anxiety disorder, unspecified; Z79.899 Other long term (current) drug therapy; Z88.8 Allergy status to other drugs, medicaments and biological substances; Z90.49 Acquired absence of other specified parts of digestive tract; W54.1XXA Struck by dog, initial encounter; Y93.89 Activity, other specified; Y92.89 Other specified places as the place of occurrence of the external cause; Y99.8 Other external cause status
CPT/HCPCS: 36415; 70450; 80053; 84484; 85025; 93005; 96361; 96374; 96375; 99285; J2270; J2405

== ENCOUNTER → 2021-01-08 | Emergency (ER) | payer MEDICAID ==
[~2021-01-08] MED LIST changes: -MORPHINE SULF INJ 2 MG/ML SYRINGE 1ML IV ONE; -ONDANSETRON HCL 4 MG/2 ML VIAL IV ONE; -SODIUM CHLORIDE 0.9% 500 ML IV ONE
== END | disposition left against medical advice (07) ==
LOC: ER 07:59
DX: M25.572 Pain in left ankle and joints of left foot (principal); Z53.21 Procedure and treatment not carried out due to patient leaving prior to being seen by health care provider

== ENCOUNTER 2021-02-14 20:43 | Emergency (ER) | payer MEDICAID ==
[~2021-02-14] VITALS: Ht 172.7 cm; Wt 99.8 kg
[2021-02-15 04:43] LABS: Basophils # (auto) 0 10 ^3/uL (0-0.2); Basophils % (auto) 0.4 % (0.0-2.0); Eosinophils # (auto) 0.1 10 ^3/uL (0-0.8); Eosinophils % (auto) 1.2 % (0.0-7.0); Hematocrit 31.9 % (36.0-46.0); Hemoglobin 10.5 g/dL (12.2-16.2); Lymphocytes # (auto) 1.7 10 ^3/uL (0.4-5.4); Lymphocytes % (auto) 16.3 % (10.0-50.0); Mean Corpuscular Hemoglobin 26.2 pg (28.0-32.0); Mean Corpuscular Hgb Conc. 33.1 g/dL (32.0-36.0); Mean Corpuscular Volume 79.2 fL (80.0-100.0); Monocytes # (auto) 0.6 10 ^3/uL (0-1.3); Monocytes % (auto) 5.6 % (0.0-12.0); Neutrophils # (auto) 8.2 10 ^3/uL (1.6-8.6); Neutrophils % (auto) 76.5 % (37.0-80.0); Red Blood Cells 4.03 10^6/uL (4.0-5.20); Red Cell Distribution Width 17.8 % (11.8-14.3); White Blood Cell 10.6 10^3/uL (4.4-10.8)
[2021-02-15 05:06] LABS: Alanine Aminotransferase 20 U/L (13-56); Albumin 3.5 g/dL (3.4-5.0); Anion Gap 9 (5-15); Aspartate Aminotransferase 19 U/L (15-37); Blood Urea Nitrogen 10 mg/dL (7-18); Carbon Dioxide 27 mmol/L (21-32); Chloride 104 mmol/L (98-107); GFR African American 115 mL/min; GFR Non-African American 95 mL/min; Glucose 105 mg/dL (74-106); Magnesium 1.9 mg/dL (1.6-2.6); Potassium 3.5 mmol/L (3.5-5.1); Sodium 140 mmol/L (136-145)
[2021-02-15 05:11] LABS: Alkaline Phosphatase 85 U/L (45-117); Bilirubin, Total 0.4 mg/dL (0.2-1.0); Total Protein 7.7 g/dL (6.4-8.2)
[2021-02-15 05:24] LABS: Calcium 6.1 mg/dL (8.5-10.1)
[2021-02-15 05:33] LABS: Free T4 (Free Thyroxine) 0.76 ng/dL (0.89-1.76); T3 Total 0.89 ng/mL (0.60-1.81)
[2021-02-15] MEDS ORDERED: CALCIUM CARB 500 MG CHEW TAB PO ONE (05:45)
[2021-02-15] MEDS ORDERED: CALCIUM GLUC 1,000mg/50ml-NS 50 ML IV ONE (05:45)
[2021-02-15 08:34] VITALS: BP 122/95
== END 2021-02-15 09:32 | disposition home or self-care (01) ==
LOC: EDBD 20:43 → ER 20:45
DX: E83.51 Hypocalcemia (principal); E03.9 Hypothyroidism, unspecified; Z90.89 Acquired absence of other organs; Z79.899 Other long term (current) drug therapy; Z88.8 Allergy status to other drugs, medicaments and biological substances
CPT/HCPCS: 36415; 80053; 83735; 84439; 84443; 84480; 84484; 85025; 93005; 96365; 99284; J0610

== ENCOUNTER → 2021-12-08 | Emergency (ER) | payer MEDICAID ==
[~2021-12-08] VITALS: Ht 180.3 cm; Wt 90.7 kg
[~2021-12-08] MED LIST changes: +POTASSIUM CHL 20 Meq TABLET PO ONE
[2021-12-08 16:38] VITALS: BP 140/91
[2021-12-08 18:08] LABS: Basophils # (auto) 0 10 ^3/uL (0-0.2); Basophils % (auto) 0.4 % (0.0-2.0); Eosinophils # (auto) 0.1 10 ^3/uL (0-0.8); Hemoglobin 10.7 g/dL (12.2-16.2); Lymphocytes # (auto) 1.6 10 ^3/uL (0.4-5.4); Lymphocytes % (auto) 22.9 % (10.0-50.0); Monocytes # (auto) 0.4 10 ^3/uL (0-1.3); Monocytes % (auto) 5.3 % (0.0-12.0)
[2021-12-08 18:09] LABS: Eosinophils % (auto) 0.8 % (0.0-7.0); Hematocrit 33.5 % (36.0-46.0); Mean Corpuscular Hemoglobin 24.3 pg (28.0-32.0); Mean Corpuscular Volume 75.8 fL (80.0-100.0); Neutrophils % (auto) 70.6 % (37.0-80.0); Red Blood Cells 4.42 10^6/uL (4.0-5.20); Red Cell Distribution Width 18.6 % (11.8-14.3)
[2021-12-08 18:18] LABS: Albumin 3.8 g/dL (3.4-5.0); BUN/Creatinine Ratio 11.2; Calcium 6.4 mg/dL (8.5-10.1)
[2021-12-08 18:21] LABS: Bilirubin, Total 0.3 mg/dL (0.2-1.0); Total Protein 7.9 g/dL (6.4-8.2)
[2021-12-08 18:27] LABS: Potassium 2.8 mmol/L (3.5-5.1)
== END | disposition home or self-care (01) ==
LOC: EDUNIT# 15:57 → ER 16:02 → EDBD 16:02
DX: R07.89 Other chest pain (principal); E03.9 Hypothyroidism, unspecified; Z86.2 Personal history of diseases of the blood and blood-forming organs and certain disorders involving the immune mechanism; Z90.89 Acquired absence of other organs; Z79.899 Other long term (current) drug therapy; Z88.8 Allergy status to other drugs, medicaments and biological substances
CPT/HCPCS: 36415; 71045; 80053; 84443; 84484; 85025; 93005

== ENCOUNTER 2022-02-17 08:44 | Emergency (ER) | payer MEDICAID, OTHER ==
[~2022-02-17] VITALS: Ht 177.8 cm; Wt 125.0 kg
[~2022-02-17 08:44] MED LIST changes: -POTASSIUM CHL 20 Meq TABLET PO ONE
[2022-02-17 09:25] VITALS: BP 149/104
[2022-02-17] MEDS ORDERED: ACETAMINOPHEN 500 MG TAB PO ONE (09:30)
[2022-02-17] MEDS ORDERED: IBUP800T27 PO (12:08)
== END 2022-02-17 12:16 | disposition home or self-care (01) ==
LOC: ER 08:44
DX: R51.9 Headache, unspecified (principal); S50.12XA Contusion of left forearm, initial encounter; V43.52XA Car driver injured in collision with other type car in traffic accident, initial encounter; Y93.89 Activity, other specified; Y92.89 Other specified places as the place of occurrence of the external cause; Y99.8 Other external cause status
CPT/HCPCS: 70450; 70551